=== PATIENT | male | born 1950 | race Caucasian/White ===

== ENCOUNTER 2022-04-17 15:42 | Inpatient (IN) ==
[2022-04-17] MEDS ORDERED: ONDANSETRON 4 MG/2 ML VIAL IV PRN (19:12)
[2022-04-17] MEDS ORDERED: LACTATED RINGERS 1,000 ML IV ONE ×2 (19:16→20:45)
[2022-04-17] MEDS: MEROPENEM 500 MG in SODIUM CHLORIDE 0.9% 100 ML IV SCH (19:30)
[2022-04-17 19:37] LABS: Basophils % 0.4 % (0.0-0.8); Eosinophils % 0.5 % (0.00-10.9); Hematocrit 35.8 VOL% (42.0-52.0); Hemoglobin 11.8 GM/DL (14.0-18.0); Immature Granulocytes % 0.2 %; Immature Granulocytes Absolute 0.01 #; Lymphocytes # 0.5 10*3/uL (1.4-4.0); Lymphocytes % 8.1 % (21.2-54.2); Mean Corpuscular Volume 100.8 FL (87-102); Mean Platelet Volume 10.4 FL (9.6-12.0); Monocytes # 0.4 10*3/uL (0.11-0.8); Monocytes % 7.2 % (1.7-12.7); Neutrophils % 83.6 % (38.7-73.9); Platelet Count 180 T/CUMM (130-400); Red Blood Count 3.55 MC/CUMM (3.8-5.5); White Blood Count 5.7 T/CUMM (4-12)
[2022-04-17] MEDS: HYDROmorphone 1 MG/1 ML SYRINGE IV PRN ×2 (19:42→23:50)
[2022-04-17 19:58] LABS: Albumin 2.6 G/DL (3.4-5.0); Bilirubin,Total 1.9 MG/DL (0.20-1.00); Calcium 7.7 MG/DL (8.5-10.1); Osmolality,Calculated 288.2 MOS/KG (273-304); Potassium 5.7 MMOL/L (3.5-5.1); Total Protein 6.2 G/DL (6.4-8.2)
[2022-04-17 20:11] LABS: Band Neutrophils 17 % (0-10); Eosinophils 3 % (0-10); Lymphocytes 10 % (20-55); Total Cells Counted 100
[2022-04-17 20:13] LABS: Reactive Lymphocytes Few
[2022-04-17 20:14] LABS: Burr Cells Slight; Macrocytosis Slight; Platelet Estimate Normal
[2022-04-17] MEDS ORDERED: SODIUM CHLORIDE 0.9% 1,000 ML IV ONE (20:40)
[2022-04-17] MEDS ORDERED: SODIUM CHLORIDE 0.9% 500 ML IV ONE (20:41)
[2022-04-17 21:06] LABS: Cholesterol < 50 MG/DL (50-200); HDL Cholesterol < 10 MG/DL (40-60); Triglycerides 312 MG/DL (2-150); VLDL Cholesterol 62.4 MG/DL
[2022-04-17 21:12] LABS: Albumin 2.6 G/DL (3.4-5.0); Bilirubin,Direct 1.48 MG/DL (0.0-0.20); Bilirubin,Indirect 0.4 MG/DL (0.0-1.0); Bilirubin,Total 1.9 MG/DL (0.20-1.00); Total Protein 6.3 G/DL (6.4-8.2)
[2022-04-17 21:16] LABS: Arterial Base Excess iSTAT -3 MMOL/L (-2.5-2.5); Arterial O2 Saturation iSTAT 92 % (95-100); Arterial PCO2 iSTAT 43 MM HG (35-48); Arterial PO2 iSTAT 67 MM HG (80-95); Arterial Total CO2 iSTAT 24 MMO/L (23-27)
[2022-04-17] MEDS ORDERED: SODIUM BICARBONATE 50 MEQ/50 ML VIAL IV ONE (21:21)
[2022-04-17] MEDS: ONDANSETRON 4 MG/2 ML VIAL IV PRN (21:43)
[2022-04-17] MEDS: PANTOPRAZOLE 40 MG VIAL IV SCH (22:19)
[2022-04-17] MEDS: LACTATED RINGERS 1,000 ML IV SCH (22:45)
[2022-04-18] MEDS ORDERED: LORazepam 2 MG/1 ML VIAL IV ONE ×2 (02:01→05:58)
[2022-04-18 03:02] LABS: Arterial Base Excess iSTAT -1 MMOL/L (-2.5-2.5); Arterial Bicarbonate iSTAT 23.9 MMOL/L (20-26); Arterial O2 Saturation iSTAT 93 % (95-100); Arterial PCO2 iSTAT 42 MM HG (35-48); Arterial PO2 iSTAT 69 MM HG (80-95); Arterial Total CO2 iSTAT 25 MMO/L (23-27); Arterial pH iSTAT 7.364 (7.35-7.45)
[2022-04-18 03:40] LABS: Basophils % 0.2 % (0.0-0.8); Eosinophils # 0.1 10*3/uL (0.0-0.87); Eosinophils % 1.1 % (0.00-10.9); Hematocrit 32.6 VOL% (42.0-52.0); Hemoglobin 10.5 GM/DL (14.0-18.0); Immature Granulocytes % 0.2 %; Immature Granulocytes Absolute 0.01 #; Lymphocytes # 0.3 10*3/uL (1.4-4.0); Lymphocytes % 7.8 % (21.2-54.2); Mean Corpuscular HGB Conc 32.2 GM/DL (32-36); Mean Corpuscular Volume 102.2 FL (87-102); Monocytes # 0.4 10*3/uL (0.11-0.8); Neutrophils % 80.7 % (38.7-73.9); Red Blood Count 3.19 MC/CUMM (3.8-5.5); Red Cell Distribution Width 14.9 % (9.3-17.3); White Blood Count 4.4 T/CUMM (4-12)
[2022-04-18 03:44] LABS: Platelet Count 136 T/CUMM (130-400)
[2022-04-18 04:00] LABS: Amorphous Crystals,Urine Occasional /HPF (Few); Bacteria,Urine Occasional /HPF (Few); Hyaline Casts,Urine 2 /LPF (0-3); Mucus,Urine Occasional /LPF (Occasional); RBC,Urine 5 /HPF (0-4); Squamous Epithelial Cell,Urine Occasional /HPF (0-10)
[2022-04-18 04:02] LABS: Albumin 2.1 G/DL (3.4-5.0); Bilirubin,Total 1.4 MG/DL (0.20-1.00); Calcium 6.9 MG/DL (8.5-10.1); Osmolality,Calculated 289.1 MOS/KG (273-304); Total Protein 5.5 G/DL (6.4-8.2)
[2022-04-18 04:02] LABS: Glucose,Urine (UA) Negative (Negative); Ketones,Urine Negative (Negative); Nitrite,Urine Positive (Negative); Protein,Urine 100 mg/dL (Negative); Urine Appearance HAZY (Clear); Urine Color Amber (Yellow); Urine pH 5.5 (4.5-8.0)
[2022-04-18 04:03] LABS: Bilirubin,Urine Small mg/dL (Negative); Blood, Urine Large mg/dL (Negative)
[2022-04-18] MEDS: MEROPENEM 500 MG in SODIUM CHLORIDE 0.9% 100 ML IV SCH ×4 (04:09→20:10)
[2022-04-18 04:24] LABS: Band Neutrophils 6 % (0-10); Hypochromia Slight; Lymphocytes 12 % (20-55); Total Cells Counted 100
[2022-04-18 04:25] LABS: Macrocytosis Slight
[2022-04-18 04:26] LABS: Polychromasia Slight
[2022-04-18] MEDS: LACTATED RINGERS 1,000 ML IV SCH (05:33)
[2022-04-18] MEDS: LORazepam 2 MG/1 ML VIAL IV PRN ×4 (08:40→21:34)
[2022-04-18] MEDS: PANTOPRAZOLE 40 MG VIAL IV SCH ×2 (09:05→21:30)
[2022-04-18] MEDS ORDERED: LACTATED RINGERS 1,000 ML IV SCH (09:10)
[2022-04-18] MEDS: DEXMEDETOMIDINE 400 MCG in SODIUM CHLORIDE 0.9% 96 ML IV PRN ×2 (09:35→22:30)
[2022-04-18] MEDS: SODIUM CHLORIDE 23.4% CONC INJ 38.5 MEQ, SODIUM BICARB INJ 100 MEQ in STERILE WATER INJ... IV SCH ×2 (13:35→23:37)
[2022-04-18] MEDS: HYDROmorphone 1 MG/1 ML SYRINGE IV PRN (13:45)
[2022-04-18] MEDS ORDERED: METOPROLOL TARTRATE 5 MG/5 ML VIAL IV ONE ×2 (18:05→18:08)
[2022-04-18] MEDS ORDERED: DIGOXIN 0.5 MG/2 ML AMP IV ONE ×2 (19:05→20:05)
[2022-04-18] MEDS ORDERED: PHENYLEPHRINE DRIP 40 MG/250 ML PREMIX IV ONE (19:33)
[2022-04-18] MEDS: PHENYLEPHRINE DRIP 40 MG/250 ML PREMIX IV PRN (19:44)
[2022-04-18 21:05] LABS: Arterial Base Excess iSTAT -2 MMOL/L (-2.5-2.5); Arterial Bicarbonate iSTAT 23.4 MMOL/L (20-26); Arterial O2 Saturation iSTAT 94 % (95-100); Arterial PCO2 iSTAT 44 MM HG (35-48); Arterial PO2 iSTAT 75 MM HG (80-95); Arterial Total CO2 iSTAT 25 MMO/L (23-27); Arterial pH iSTAT 7.337 (7.35-7.45)
[2022-04-18] MEDS ORDERED: FUROSEMIDE 40 MG/4 ML VIAL IV ONE (21:10)
[2022-04-19] MEDS: LORazepam 2 MG/1 ML VIAL IV PRN ×4 (01:45→22:28)
[2022-04-19] MEDS: MEROPENEM 500 MG in SODIUM CHLORIDE 0.9% 100 ML IV SCH ×2 (03:05→20:39)
[2022-04-19] MEDS: PHENYLEPHRINE DRIP 40 MG/250 ML PREMIX IV PRN (04:00)
[2022-04-19 04:10] LABS: Basophils % 0.2 % (0.0-0.8); Eosinophils # 0.1 10*3/uL (0.0-0.87); Hemoglobin 10.5 GM/DL (14.0-18.0); Immature Granulocytes % 2.3 %; Immature Granulocytes Absolute 0.12 #; Lymphocytes # 0.6 10*3/uL (1.4-4.0); Lymphocytes % 10.7 % (21.2-54.2); Mean Corpuscular HGB Conc 31.8 GM/DL (32-36); Mean Corpuscular Volume 103.1 FL (87-102); Mean Platelet Volume 10.3 FL (9.6-12.0); Monocytes # 0.7 10*3/uL (0.11-0.8); Monocytes % 12.7 % (1.7-12.7); Neutrophils % 73.1 % (38.7-73.9); Platelet Count 135 T/CUMM (130-400); Red Cell Distribution Width 14.5 % (9.3-17.3); White Blood Count 5.2 T/CUMM (4-12)
[2022-04-19 04:30] LABS: Albumin 1.9 G/DL (3.4-5.0); Bilirubin,Total 0.8 MG/DL (0.20-1.00); Calcium 6.8 MG/DL (8.5-10.1); Osmolality,Calculated 295.8 MOS/KG (273-304); Phosphorous 6.2 MG/DL (2.5-4.9); Potassium 4.5 MMOL/L (3.5-5.1); Total Protein 5.4 G/DL (6.4-8.2)
[2022-04-19 04:39] LABS: Band Neutrophils 6 % (0-10); Eosinophils 2 % (0-10); Lymphocytes 8 % (20-55); Macrocytosis Slight; Total Cells Counted 100
[2022-04-19] MEDS: SODIUM CHLORIDE 23.4% CONC INJ 38.5 MEQ, SODIUM BICARB INJ 100 MEQ in STERILE WATER INJ... IV SCH ×4 (06:29→22:58)
[2022-04-19] MEDS: DEXTROSE 10% 250 ML BAG IV PRN (07:22)
[2022-04-19] MEDS: DEXMEDETOMIDINE 400 MCG in SODIUM CHLORIDE 0.9% 96 ML IV PRN ×2 (07:57→19:36)
[2022-04-19] MEDS ORDERED: MAGNESIUM SULF RIDER 2 GM/50 ML PREMIX IV ONE (08:27)
[2022-04-19] MEDS: PANTOPRAZOLE 40 MG VIAL IV SCH ×2 (08:32→20:40)
[2022-04-19] MEDS: HYDROCORTISONE 100 MG VIAL IV SCH ×2 (11:56→23:11)
[2022-04-19] MEDS ORDERED: MIDAZOLAM 2 MG/2 ML VIAL ONE (16:31)
[2022-04-19] MEDS ORDERED: MIDAZOLAM 2 MG/2 ML VIAL IV ONE (16:34)
[2022-04-19] MEDS ORDERED: GLUCAGON 1 MG VIAL IM PRN (17:19)
[2022-04-19] MEDS ORDERED: MULTIVITAMIN INJ 10 ML in AMINO ACIDS/DEXT/LYTES 5-15% 1,000 ML IV SCH (18:00)
[2022-04-19] MEDS: INSULIN LISPRO 100 UNIT/ML SUBCUT SCH (18:16)
[2022-04-19] MEDS: NICOTINE 14 MG/24 HR PATCH TRANSDERM PRN (23:12)
[2022-04-20] MEDS: INSULIN LISPRO 100 UNIT/ML SUBCUT SCH ×4 (00:05→17:26)
[2022-04-20] MEDS: DEXMEDETOMIDINE 400 MCG in SODIUM CHLORIDE 0.9% 96 ML IV PRN ×3 (02:29→21:57)
[2022-04-20 05:08] LABS: Hematocrit 26.8 VOL% (42.0-52.0); Hemoglobin 8.8 GM/DL (14.0-18.0); Immature Granulocytes % 0.2 %; Immature Granulocytes Absolute 0.01 #; Lymphocytes # 0.4 10*3/uL (1.4-4.0); Lymphocytes % 7.5 % (21.2-54.2); Mean Corpuscular HGB Conc 32.8 GM/DL (32-36); Mean Corpuscular Volume 100.4 FL (87-102); Mean Platelet Volume 10.9 FL (9.6-12.0); Monocytes # 0.6 10*3/uL (0.11-0.8); Monocytes % 11.6 % (1.7-12.7); Neutrophils % 80.7 % (38.7-73.9); Platelet Count 109 T/CUMM (130-400); Red Blood Count 2.67 MC/CUMM (3.8-5.5); Red Cell Distribution Width 14.3 % (9.3-17.3); White Blood Count 4.8 T/CUMM (4-12)
[2022-04-20 05:30] LABS: Band Neutrophils 2 % (0-10); Lymphocytes 13 % (20-55); Total Cells Counted 100
[2022-04-20 05:31] LABS: Albumin 1.6 G/DL (3.4-5.0); Bilirubin,Total 0.6 MG/DL (0.20-1.00); Calcium 6.9 MG/DL (8.5-10.1); Hypochromia Slight; Microcytosis Slight; Osmolality,Calculated 303.2 MOS/KG (273-304); Phosphorous 8.8 MG/DL (2.5-4.9); Potassium 4.5 MMOL/L (3.5-5.1); Total Protein 5.4 G/DL (6.4-8.2)
[2022-04-20] MEDS: SODIUM CHLORIDE 23.4% CONC INJ 38.5 MEQ, SODIUM BICARB INJ 100 MEQ in STERILE WATER INJ... IV SCH ×2 (06:56→14:35)
[2022-04-20] MEDS: PANTOPRAZOLE 40 MG VIAL IV SCH ×2 (09:21→20:10)
[2022-04-20] MEDS: HYDROmorphone 1 MG/1 ML SYRINGE IV PRN ×2 (13:25→17:06)
[2022-04-20] MEDS ORDERED: THIAMINE 200 MG/2 ML VIAL IV ONE (14:09)
[2022-04-20 14:28] LABS: Eosinophils % 0.2 % (0.00-10.9); Hematocrit 28.6 VOL% (42.0-52.0); Hemoglobin 9.3 GM/DL (14.0-18.0); Immature Granulocytes % 0.4 %; Immature Granulocytes Absolute 0.02 #; Lymphocytes # 0.5 10*3/uL (1.4-4.0); Lymphocytes % 9.7 % (21.2-54.2); Mean Corpuscular HGB Conc 32.5 GM/DL (32-36); Mean Corpuscular Volume 99.3 FL (87-102); Mean Platelet Volume 10.2 FL (9.6-12.0); Monocytes # 0.6 10*3/uL (0.11-0.8); Monocytes % 12.3 % (1.7-12.7); Neutrophils % 77.4 % (38.7-73.9); Platelet Count 102 T/CUMM (130-400); Red Blood Count 2.88 MC/CUMM (3.8-5.5); Red Cell Distribution Width 14.1 % (9.3-17.3); White Blood Count 4.9 T/CUMM (4-12)
[2022-04-20] MEDS ORDERED: THIAMINE 200 MG/2 ML VIAL IV SCH (14:30)
[2022-04-20 14:46] LABS: Calcium 6.7 MG/DL (8.5-10.1); Osmolality,Calculated 303.1 MOS/KG (273-304); Potassium 4.1 MMOL/L (3.5-5.1)
[2022-04-20] MEDS: THIAMINE INJ 500 MG in SODIUM CHLORIDE 0.9% 100 ML IV SCH (15:48)
[2022-04-20] MEDS: HALOPERIDOL 5 MG/ML AMP IM PRN (16:46)
[2022-04-20] MEDS ORDERED: AMINO ACIDS IV SCH (17:00)
[2022-04-20] MEDS ORDERED: [UNRECOGNIZED DRUG - OTHER] IV SCH (17:00)
[2022-04-20] MEDS ORDERED: ELECTROLYTE IV SCH (17:00)
[2022-04-20] MEDS ORDERED: MULTIVITAMIN IV SCH (17:00)
[2022-04-20] MEDS: MEROPENEM 500 MG in SODIUM CHLORIDE 0.9% 100 ML IV SCH (20:10)
[2022-04-21] MEDS: INSULIN LISPRO 100 UNIT/ML SUBCUT SCH ×4 (00:36→18:01)
[2022-04-21] MEDS: THIAMINE INJ 500 MG in SODIUM CHLORIDE 0.9% 100 ML IV SCH ×2 (00:36→08:13)
[2022-04-21] MEDS ORDERED: METOPROLOL TARTRATE 5 MG/5 ML VIAL IV ONE ×2 (00:46→04:32)
[2022-04-21] MEDS: SODIUM CHLORIDE 23.4% CONC INJ 38.5 MEQ, SODIUM BICARB INJ 100 MEQ in STERILE WATER INJ... IV SCH (00:49)
[2022-04-21] MEDS: HALOPERIDOL 5 MG/ML AMP IM PRN (01:59)
[2022-04-21] MEDS: hydrALAZINE 20 MG/1 ML VIAL IV PRN (03:33)
[2022-04-21 03:50] LABS: Basophils % 0.1 % (0.0-0.8); Calcium 6.6 MG/DL (8.5-10.1); Eosinophils % 0.1 % (0.00-10.9); Hematocrit 29.3 VOL% (42.0-52.0); Hemoglobin 9.5 GM/DL (14.0-18.0); Immature Granulocytes Absolute 0.08 #; Lymphocytes # 0.7 10*3/uL (1.4-4.0); Lymphocytes % 9.1 % (21.2-54.2); Mean Corpuscular HGB Conc 32.4 GM/DL (32-36); Mean Corpuscular Volume 100.3 FL (87-102); Mean Platelet Volume 10.8 FL (9.6-12.0); Monocytes # 0.8 10*3/uL (0.11-0.8); Monocytes % 9.8 % (1.7-12.7); Neutrophils % 79.9 % (38.7-73.9); Platelet Count 114 T/CUMM (130-400); Potassium 3.9 MMOL/L (3.5-5.1); Red Blood Count 2.92 MC/CUMM (3.8-5.5); White Blood Count 7.9 T/CUMM (4-12)
[2022-04-21] MEDS: HYDROmorphone 1 MG/1 ML SYRINGE IV PRN ×4 (04:32→20:23)
[2022-04-21] MEDS ORDERED: LORazepam 2 MG/1 ML VIAL IV ONE (04:36)
[2022-04-21] MEDS: PANTOPRAZOLE 40 MG VIAL IV SCH ×2 (08:14→20:02)
[2022-04-21] MEDS: DEXMEDETOMIDINE 400 MCG in SODIUM CHLORIDE 0.9% 96 ML IV PRN ×2 (08:26→17:13)
[2022-04-21] MEDS ORDERED: cloNIDine 0.1 MG/24 HR PATCH TRANSDERM SCH (10:22)
[2022-04-21] MEDS: SODIUM CHLORIDE 0.9% 1,000 ML IV SCH ×2 (10:30→20:00)
[2022-04-21] MEDS: cloNIDine 0.1 MG/24 HR PATCH TRANSDERM SCH (11:26)
[2022-04-21] MEDS: NICOTINE 14 MG/24 HR PATCH TRANSDERM PRN (11:48)
[2022-04-21] MEDS: FAT EMULSION 20% 250 ML IV SCH (13:52)
[2022-04-21] MEDS ORDERED: [UNRECOGNIZED DRUG - OTHER] IV SCH (17:00)
[2022-04-21] MEDS ORDERED: ELECTROLYTE IV SCH (17:00)
[2022-04-21] MEDS ORDERED: INSULIN REGULAR IV SCH (17:00)
[2022-04-21] MEDS ORDERED: MULTIVITAMIN IV SCH (17:00)
[2022-04-21] MEDS: MEROPENEM 500 MG in SODIUM CHLORIDE 0.9% 100 ML IV SCH (20:00)
[2022-04-21] MEDS: METOPROLOL TARTRATE 5 MG/5 ML VIAL IV PRN (20:40)
[2022-04-22] MEDS: INSULIN LISPRO 100 UNIT/ML SUBCUT SCH ×6 (00:49→23:57)
[2022-04-22] MEDS: DEXMEDETOMIDINE 400 MCG in SODIUM CHLORIDE 0.9% 96 ML IV PRN ×2 (01:56→11:56)
[2022-04-22] MEDS: SODIUM CHLORIDE 0.9% 1,000 ML IV SCH (04:18)
[2022-04-22 04:19] LABS: Basophils % 0.1 % (0.0-0.8); Eosinophils % 0.2 % (0.00-10.9); Hematocrit 25.9 VOL% (42.0-52.0); Hemoglobin 8.4 GM/DL (14.0-18.0); Immature Granulocytes Absolute 0.08 #; Lymphocytes # 0.6 10*3/uL (1.4-4.0); Lymphocytes % 7.7 % (21.2-54.2); Mean Corpuscular HGB Conc 32.4 GM/DL (32-36); Mean Platelet Volume 10.7 FL (9.6-12.0); Monocytes # 0.8 10*3/uL (0.11-0.8); Monocytes % 9.9 % (1.7-12.7); Neutrophils % 81.1 % (38.7-73.9); Platelet Count 107 T/CUMM (130-400); Red Blood Count 2.59 MC/CUMM (3.8-5.5); Red Cell Distribution Width 14.1 % (9.3-17.3); White Blood Count 8.1 T/CUMM (4-12)
[2022-04-22 04:46] LABS: Albumin 1.3 G/DL (3.4-5.0); Bilirubin,Total 0.5 MG/DL (0.20-1.00); Calcium 6.6 MG/DL (8.5-10.1); Osmolality,Calculated 317.7 MOS/KG (273-304); Phosphorous 4.9 MG/DL (2.5-4.9); Potassium 3.6 MMOL/L (3.5-5.1); Total Protein 5.1 G/DL (6.4-8.2)
[2022-04-22 04:47] LABS: Band Neutrophils 2 % (0-10); Lymphocytes 7 % (20-55); Total Cells Counted 100
[2022-04-22 04:48] LABS: Microcytosis Slight; Platelet Estimate Decreased
[2022-04-22 04:53] LABS: Calcium 6.8 MG/DL (8.5-10.1); Osmolality,Calculated 321.5 MOS/KG (273-304); Potassium 3.6 MMOL/L (3.5-5.1)
[2022-04-22] MEDS: HALOPERIDOL 5 MG/ML AMP IM PRN ×2 (07:50→19:50)
[2022-04-22] MEDS: PANTOPRAZOLE 40 MG VIAL IV SCH ×2 (08:52→21:01)
[2022-04-22] MEDS: HYDROmorphone 1 MG/1 ML SYRINGE IV PRN ×3 (08:53→21:24)
[2022-04-22] MEDS ORDERED: FUROSEMIDE 40 MG/4 ML VIAL IV ONE (11:18)
[2022-04-22] MEDS ORDERED: INSULIN LISPRO 100 UNIT/ML SUBCUT SCH (13:30)
[2022-04-22] MEDS: METOPROLOL TARTRATE 5 MG/5 ML VIAL IV PRN (14:16)
[2022-04-22] MEDS ORDERED: METOPROLOL TARTRATE 5 MG/5 ML VIAL IV ONE (14:19)
[2022-04-22] MEDS ORDERED: AMIODARONE INJ 150 MG in DEXTROSE 5% 100 ML IV ONE (14:31)
[2022-04-22 14:44] LABS: Arterial Base Excess iSTAT 5 MMOL/L (-2.5-2.5); Arterial O2 Saturation iSTAT 95 % (95-100); Arterial PCO2 iSTAT 48 MM HG (35-48); Arterial PO2 iSTAT 79 MM HG (80-95); Arterial Total CO2 iSTAT 31 MMO/L (23-27); Arterial pH iSTAT 7.404 (7.35-7.45)
[2022-04-22] MEDS ORDERED: AMIODARONE INJ 450 MG in DEXTROSE 5% 241 ML IV SCH (16:00)
[2022-04-22] MEDS ORDERED: MULTIVITAMIN IV SCH (17:00)
[2022-04-22] MEDS ORDERED: INSULIN REGULAR IV SCH (17:00)
[2022-04-22] MEDS ORDERED: ELECTROLYTE IV SCH (17:00)
[2022-04-22] MEDS ORDERED: [UNRECOGNIZED DRUG - OTHER] IV SCH (17:00)
[2022-04-22] MEDS ORDERED: DILTIAZEM 25 MG/5 ML VIAL IV ONE (18:00)
[2022-04-22] MEDS ORDERED: DILTIAZEM 25 MG/5 ML VIAL IV STA (19:33)
[2022-04-22] MEDS: MEROPENEM 500 MG in SODIUM CHLORIDE 0.9% 100 ML IV SCH (21:02)
[2022-04-22] MEDS: AMIODARONE INJ 450 MG in DEXTROSE 5% 241 ML IV SCH (23:19)
[2022-04-23] MEDS: HYDROmorphone 1 MG/1 ML SYRINGE IV PRN ×4 (01:04→22:01)
[2022-04-23 03:28] LABS: Basophils % 0.1 % (0.0-0.8); Eosinophils # 0.1 10*3/uL (0.0-0.87); Eosinophils % 0.5 % (0.00-10.9); Hematocrit 27.3 VOL% (42.0-52.0); Hemoglobin 8.8 GM/DL (14.0-18.0); Immature Granulocytes % 1.3 %; Immature Granulocytes Absolute 0.13 #; Lymphocytes # 0.9 10*3/uL (1.4-4.0); Lymphocytes % 8.7 % (21.2-54.2); Mean Corpuscular HGB Conc 32.2 GM/DL (32-36); Mean Corpuscular Volume 102.6 FL (87-102); Mean Platelet Volume 10.7 FL (9.6-12.0); Monocytes # 1.1 10*3/uL (0.11-0.8); Monocytes % 10.7 % (1.7-12.7); Neutrophils % 78.7 % (38.7-73.9); Platelet Count 156 T/CUMM (130-400); Red Blood Count 2.66 MC/CUMM (3.8-5.5); Red Cell Distribution Width 14.2 % (9.3-17.3); White Blood Count 10.3 T/CUMM (4-12)
[2022-04-23 03:44] LABS: Calcium 7.5 MG/DL (8.5-10.1); Osmolality,Calculated 323.7 MOS/KG (273-304); Potassium 3.7 MMOL/L (3.5-5.1)
[2022-04-23 03:49] LABS: Phosphorous 5.3 MG/DL (2.5-4.9)
[2022-04-23] MEDS: INSULIN LISPRO 100 UNIT/ML SUBCUT SCH ×6 (04:26→23:37)
[2022-04-23] MEDS: HALOPERIDOL 5 MG/ML AMP IM PRN (06:12)
[2022-04-23] MEDS ORDERED: FUROSEMIDE 40 MG/4 ML VIAL IV ONE (08:45)
[2022-04-23] MEDS: THIAMINE 200 MG/2 ML VIAL IV SCH (09:44)
[2022-04-23] MEDS: ALBUMIN 25% 25 GM/100 ML VIAL IV SCH ×2 (09:44→17:55)
[2022-04-23] MEDS: PANTOPRAZOLE 40 MG VIAL IV SCH ×2 (09:47→21:46)
[2022-04-23] MEDS: NICOTINE 14 MG/24 HR PATCH TRANSDERM PRN (09:51)
[2022-04-23] MEDS ORDERED: DILTIAZEM 25 MG/5 ML VIAL IV ONE (10:03)
[2022-04-23] MEDS: FAT EMULSION 20% 250 ML IV SCH (11:29)
[2022-04-23] MEDS ORDERED: methylPREDNISolone SOD SUC 125 MG/2 ML VIAL IV ONE (12:01)
[2022-04-23] MEDS ORDERED: BISACODYL 10 MG SUPP RECTAL ONE (13:00)
[2022-04-23] MEDS: HEPARIN 5,000 UNIT/1 ML VIAL SUBCUT SCH (13:09)
[2022-04-23] MEDS: DILTIAZEM INJ 100 MG in SODIUM CHLORIDE 0.9% 100 ML IV SCH ×2 (13:09→19:52)
[2022-04-23] MEDS: AMIODARONE INJ 450 MG in DEXTROSE 5% 241 ML IV SCH (13:50)
[2022-04-23] MEDS: hydrALAZINE 20 MG/1 ML VIAL IV PRN (15:57)
[2022-04-23] MEDS: ELECTROLYTE IV SCH (17:55)
[2022-04-23] MEDS: INSULIN REGULAR IV SCH (17:55)
[2022-04-23] MEDS: MULTIVITAMIN IV SCH (17:55)
[2022-04-23] MEDS: [UNRECOGNIZED DRUG - OTHER] IV SCH (17:55)
[2022-04-23] MEDS: MEROPENEM 500 MG in SODIUM CHLORIDE 0.9% 100 ML IV SCH (21:56)
[2022-04-24] MEDS ORDERED: INSULIN REGULAR 100 UNIT/ML IV ONE
[2022-04-24] MEDS: HEPARIN 5,000 UNIT/1 ML VIAL SUBCUT SCH ×2 (00:13→11:50)
[2022-04-24] MEDS: ALBUMIN 25% 25 GM/100 ML VIAL IV SCH (00:19)
[2022-04-24] MEDS: HALOPERIDOL 5 MG/ML AMP IM PRN ×2 (00:26→23:00)
[2022-04-24] MEDS: HYDROmorphone 1 MG/1 ML SYRINGE IV PRN ×3 (01:38→21:33)
[2022-04-24] MEDS ORDERED: ALBUTEROL/IPRATROPIUM 3 ML NEB RESP TX STA (04:33)
[2022-04-24] MEDS: INSULIN LISPRO 100 UNIT/ML SUBCUT SCH ×5 (04:37→21:32)
[2022-04-24 04:45] LABS: Basophils % 0.1 % (0.0-0.8); Hematocrit 28.4 VOL% (42.0-52.0); Hemoglobin 9.1 GM/DL (14.0-18.0); Immature Granulocytes Absolute 0.09 #; Lymphocytes # 0.6 10*3/uL (1.4-4.0); Lymphocytes % 6.6 % (21.2-54.2); Mean Corpuscular Volume 102.2 FL (87-102); Monocytes # 0.4 10*3/uL (0.11-0.8); Monocytes % 4.9 % (1.7-12.7); Neutrophils % 87.4 % (38.7-73.9); Platelet Count 212 T/CUMM (130-400); Red Blood Count 2.78 MC/CUMM (3.8-5.5); Red Cell Distribution Width 13.8 % (9.3-17.3); White Blood Count 8.9 T/CUMM (4-12)
[2022-04-24 05:13] LABS: Calcium 8.6 MG/DL (8.5-10.1); Potassium 3.8 MMOL/L (3.5-5.1)
[2022-04-24] MEDS: AMIODARONE INJ 450 MG in DEXTROSE 5% 241 ML IV SCH (06:59)
[2022-04-24] MEDS: THIAMINE 200 MG/2 ML VIAL IV SCH (08:12)
[2022-04-24] MEDS: PANTOPRAZOLE 40 MG VIAL IV SCH ×2 (08:12→21:29)
[2022-04-24] MEDS ORDERED: AMIODARONE 200 MG TABLET PO SCH (09:00)
[2022-04-24] MEDS ORDERED: ALBUTEROL/IPRATROPIUM 3 ML NEB RESP TX PRN (09:00)
[2022-04-24] MEDS ORDERED: INSULIN GLARGINE 100 UNIT/ML SUBCUT SCH (10:03)
[2022-04-24 13:48] LABS: Hepatitis B Core IgM Quant 0.16 Index; Hepatitis B Surface Ag Quant < 0.10 Index; Hepatitis B Surface Ag Result Non-Reactive (NonReactive); Hepatitis C Virus Ab Quant 0.16 Index; Hepatitis C Virus Ab Result Non-Reactive (NonReactive)
[2022-04-24] MEDS ORDERED: HEPARIN 10,000 UNIT/10 ML VIAL IV PRN (14:04)
[2022-04-24] MEDS: ELECTROLYTE IV SCH (17:11)
[2022-04-24] MEDS: MULTIVITAMIN IV SCH (17:11)
[2022-04-24] MEDS: INSULIN REGULAR IV SCH (17:11)
[2022-04-24] MEDS: [UNRECOGNIZED DRUG - OTHER] IV SCH (17:11)
[2022-04-24] MEDS: NICOTINE 14 MG/24 HR PATCH TRANSDERM PRN (17:15)
[2022-04-24] MEDS: MEROPENEM 500 MG in SODIUM CHLORIDE 0.9% 100 ML IV SCH (21:29)
[2022-04-24] MEDS: hydrALAZINE 20 MG/1 ML VIAL IV PRN (22:12)
[2022-04-24] MEDS: LORazepam 2 MG/1 ML VIAL IV PRN (22:38)
[2022-04-24] MEDS: METOPROLOL TARTRATE 5 MG/5 ML VIAL IV PRN (23:59)
[2022-04-25] MEDS: INSULIN LISPRO 100 UNIT/ML SUBCUT SCH ×6 (01:03→19:43)
[2022-04-25] MEDS: LORazepam 2 MG/1 ML VIAL IV PRN ×2 (02:05→11:05)
[2022-04-25] MEDS: HEPARIN 5,000 UNIT/1 ML VIAL SUBCUT SCH ×2 (02:07→11:39)
[2022-04-25 03:54] LABS: Basophils % 0.2 % (0.0-0.8); Hematocrit 30.5 VOL% (42.0-52.0); Hemoglobin 9.8 GM/DL (14.0-18.0); Immature Granulocytes % 1.2 %; Immature Granulocytes Absolute 0.15 #; Lymphocytes # 0.8 10*3/uL (1.4-4.0); Lymphocytes % 6.4 % (21.2-54.2); Mean Corpuscular HGB Conc 32.1 GM/DL (32-36); Mean Corpuscular Volume 101.7 FL (87-102); Mean Platelet Volume 10.9 FL (9.6-12.0); Monocytes % 8.1 % (1.7-12.7); Neutrophils % 84.1 % (38.7-73.9); Platelet Count 338 T/CUMM (130-400); Red Cell Distribution Width 13.7 % (9.3-17.3); White Blood Count 12.9 T/CUMM (4-12)
[2022-04-25 04:22] LABS: Bilirubin,Total 0.5 MG/DL (0.20-1.00); Calcium 8.7 MG/DL (8.5-10.1); Potassium 3.7 MMOL/L (3.5-5.1); Total Protein 6.1 G/DL (6.4-8.2)
[2022-04-25] MEDS: hydrALAZINE 20 MG/1 ML VIAL IV PRN (05:08)
[2022-04-25] MEDS: THIAMINE 200 MG/2 ML VIAL IV SCH (08:05)
[2022-04-25] MEDS: HYDROmorphone 1 MG/1 ML SYRINGE IV PRN ×4 (08:06→21:27)
[2022-04-25] MEDS: PANTOPRAZOLE 40 MG VIAL IV SCH ×2 (08:06→21:26)
[2022-04-25] MEDS: DILTIAZEM INJ 100 MG in SODIUM CHLORIDE 0.9% 100 ML IV SCH ×2 (08:07→19:34)
[2022-04-25] MEDS ORDERED: AMIODARONE 200 MG TABLET PO SCH (09:00)
[2022-04-25] MEDS: OMEGA 3 ACID ETHYL ESTERS 1 GM CAPSULE PO SCH ×2 (09:19→21:26)
[2022-04-25] MEDS ORDERED: METOPROLOL TARTRATE 25 MG TABLET PO SCH (12:00)
[2022-04-25] MEDS ORDERED: LORazepam 2 MG/1 ML VIAL IV ONE (15:34)
[2022-04-25] MEDS ORDERED: METOPROLOL TARTRATE 5 MG/5 ML VIAL IV ONE ×2 (15:35→15:39)
[2022-04-25] MEDS: AMIODARONE INJ 450 MG in DEXTROSE 5% 241 ML IV SCH (18:47)
[2022-04-25] MEDS: ONDANSETRON 4 MG/2 ML VIAL IV PRN (19:43)
[2022-04-25] MEDS: MEROPENEM 500 MG in SODIUM CHLORIDE 0.9% 100 ML IV SCH (21:26)
[2022-04-26] MEDS: INSULIN LISPRO 100 UNIT/ML SUBCUT SCH ×6 (00:01→20:56)
[2022-04-26] MEDS: HYDROmorphone 1 MG/1 ML SYRINGE IV PRN ×8 (00:01→22:09)
[2022-04-26] MEDS: METOPROLOL TARTRATE 5 MG/5 ML VIAL IV SCH ×4 (00:02→17:25)
[2022-04-26] MEDS: HEPARIN 5,000 UNIT/1 ML VIAL SUBCUT SCH ×2 (00:03→11:43)
[2022-04-26] MEDS: DILTIAZEM INJ 100 MG in SODIUM CHLORIDE 0.9% 100 ML IV SCH ×2 (00:07→07:46)
[2022-04-26] MEDS: ONDANSETRON 4 MG/2 ML VIAL IV PRN ×3 (03:11→19:33)
[2022-04-26 04:05] LABS: Basophils % 0.1 % (0.0-0.8); Hematocrit 27.7 VOL% (42.0-52.0); Hemoglobin 8.6 GM/DL (14.0-18.0); Immature Granulocytes % 0.9 %; Immature Granulocytes Absolute 0.15 #; Lymphocytes # 1.2 10*3/uL (1.4-4.0); Lymphocytes % 6.8 % (21.2-54.2); Mean Corpuscular Volume 104.1 FL (87-102); Mean Platelet Volume 10.4 FL (9.6-12.0); Monocytes % 12.1 % (1.7-12.7); Neutrophils % 80.1 % (38.7-73.9); Platelet Count 352 T/CUMM (130-400); Red Blood Count 2.66 MC/CUMM (3.8-5.5); Red Cell Distribution Width 14.1 % (9.3-17.3); White Blood Count 16.8 T/CUMM (4-12)
[2022-04-26 04:47] LABS: Albumin 1.8 G/DL (3.4-5.0); Bilirubin,Total 0.6 MG/DL (0.20-1.00); Calcium 8.4 MG/DL (8.5-10.1); Osmolality,Calculated 310.5 MOS/KG (273-304); Potassium 4.2 MMOL/L (3.5-5.1); Total Protein 5.6 G/DL (6.4-8.2); Uric Acid 7.5 MG/DL (3.5-7.2)
[2022-04-26] MEDS: OMEGA 3 ACID ETHYL ESTERS 1 GM CAPSULE PO SCH ×2 (08:25→20:56)
[2022-04-26] MEDS: THIAMINE 200 MG/2 ML VIAL IV SCH (08:31)
[2022-04-26] MEDS: PANTOPRAZOLE 40 MG VIAL IV SCH ×2 (08:31→20:57)
[2022-04-26] MEDS: AMIODARONE INJ 450 MG in DEXTROSE 5% 241 ML IV SCH (10:31)
[2022-04-26] MEDS: ELECTROLYTE IV SCH ×2 (15:45→17:25)
[2022-04-26] MEDS: [UNRECOGNIZED DRUG - OTHER] IV SCH ×2 (15:45→17:25)
[2022-04-26] MEDS: INSULIN REGULAR IV SCH ×2 (15:45→17:25)
[2022-04-26] MEDS: MULTIVITAMIN IV SCH ×2 (15:45→17:25)
[2022-04-26] MEDS: MEROPENEM 500 MG in SODIUM CHLORIDE 0.9% 100 ML IV SCH (20:56)
[2022-04-27] MEDS: INSULIN LISPRO 100 UNIT/ML SUBCUT SCH ×6 (00:10→20:29)
[2022-04-27] MEDS: HEPARIN 5,000 UNIT/1 ML VIAL SUBCUT SCH ×2 (00:10→11:57)
[2022-04-27] MEDS: ONDANSETRON 4 MG/2 ML VIAL IV PRN ×2 (00:11→20:27)
[2022-04-27] MEDS: HYDROmorphone 1 MG/1 ML SYRINGE IV PRN ×6 (00:12→20:28)
[2022-04-27] MEDS: METOPROLOL TARTRATE 5 MG/5 ML VIAL IV SCH ×5 (00:13→23:44)
[2022-04-27] MEDS: AMIODARONE INJ 450 MG in DEXTROSE 5% 241 ML IV SCH ×3 (00:30→18:20)
[2022-04-27 03:59] LABS: Basophils % 0.1 % (0.0-0.8); Eosinophils % 0.1 % (0.00-10.9); Hematocrit 27.1 VOL% (42.0-52.0); Hemoglobin 8.3 GM/DL (14.0-18.0); Immature Granulocytes % 1.3 %; Lymphocytes % 6.1 % (21.2-54.2); Mean Corpuscular HGB Conc 30.6 GM/DL (32-36); Mean Platelet Volume 10.6 FL (9.6-12.0); Monocytes # 1.6 10*3/uL (0.11-0.8); Monocytes % 10.1 % (1.7-12.7); Neutrophils % 82.3 % (38.7-73.9); Platelet Count 330 T/CUMM (130-400); Red Blood Count 2.58 MC/CUMM (3.8-5.5); Red Cell Distribution Width 14.1 % (9.3-17.3)
[2022-04-27 04:23] LABS: Phosphorous 6.8 MG/DL (2.5-4.9)
[2022-04-27 04:27] LABS: Albumin 1.7 G/DL (3.4-5.0); Bilirubin,Total 0.5 MG/DL (0.20-1.00); Calcium 8.7 MG/DL (8.5-10.1); Osmolality,Calculated 315.7 MOS/KG (273-304); Potassium 4.3 MMOL/L (3.5-5.1); Total Protein 5.8 G/DL (6.4-8.2)
[2022-04-27] MEDS: NICOTINE 14 MG/24 HR PATCH TRANSDERM PRN (05:12)
[2022-04-27] MEDS: OMEGA 3 ACID ETHYL ESTERS 1 GM CAPSULE PO SCH ×2 (08:11→20:27)
[2022-04-27] MEDS: PANTOPRAZOLE 40 MG VIAL IV SCH ×2 (08:11→20:28)
[2022-04-27] MEDS: DILTIAZEM INJ 100 MG in SODIUM CHLORIDE 0.9% 100 ML IV SCH (08:11)
[2022-04-27] MEDS: THIAMINE 200 MG/2 ML VIAL IV SCH (08:12)
[2022-04-27] MEDS: MULTIVITAMIN IV SCH (18:19)
[2022-04-27] MEDS: ELECTROLYTE IV SCH (18:19)
[2022-04-27] MEDS: [UNRECOGNIZED DRUG - OTHER] IV SCH (18:19)
[2022-04-27] MEDS: INSULIN REGULAR IV SCH (18:19)
[2022-04-28] MEDS: HEPARIN 5,000 UNIT/1 ML VIAL SUBCUT SCH ×2 (00:28→12:21)
[2022-04-28] MEDS: INSULIN LISPRO 100 UNIT/ML SUBCUT SCH ×6 (00:28→21:14)
[2022-04-28] MEDS: HYDROmorphone 1 MG/1 ML SYRINGE IV PRN ×5 (02:31→16:35)
[2022-04-28 03:38] LABS: Basophils % 0.1 % (0.0-0.8); Eosinophils % 0.1 % (0.00-10.9); Hematocrit 25.2 VOL% (42.0-52.0); Hemoglobin 7.8 GM/DL (14.0-18.0); Immature Granulocytes % 2.1 %; Immature Granulocytes Absolute 0.31 #; Lymphocytes # 0.6 10*3/uL (1.4-4.0); Lymphocytes % 4.3 % (21.2-54.2); Mean Corpuscular Volume 103.7 FL (87-102); Mean Platelet Volume 10.5 FL (9.6-12.0); Monocytes # 1.4 10*3/uL (0.11-0.8); Monocytes % 9.5 % (1.7-12.7); Neutrophils % 83.9 % (38.7-73.9); Platelet Count 326 T/CUMM (130-400); Red Blood Count 2.43 MC/CUMM (3.8-5.5); Red Cell Distribution Width 13.8 % (9.3-17.3); White Blood Count 14.8 T/CUMM (4-12)
[2022-04-28 03:55] LABS: Albumin 1.6 G/DL (3.4-5.0); Bilirubin,Total 0.6 MG/DL (0.20-1.00); Calcium 8.7 MG/DL (8.5-10.1); Potassium 4.1 MMOL/L (3.5-5.1); Total Protein 5.7 G/DL (6.4-8.2)
[2022-04-28 03:59] LABS: Band Neutrophils 2 % (0-10); Hypochromia Slight; Lymphocytes 3 % (20-55); Microcytosis Slight; Platelet Estimate Adequate; Total Cells Counted 100
[2022-04-28 04:28] LABS: Arterial Base Excess iSTAT -1 MMOL/L (-2.5-2.5); Arterial Bicarbonate iSTAT 25.4 MMOL/L (20-26); Arterial O2 Saturation iSTAT 97 % (95-100); Arterial PCO2 iSTAT 48 MM HG (35-48); Arterial PO2 iSTAT 93 MM HG (80-95); Arterial Total CO2 iSTAT 27 MMO/L (23-27); Arterial pH iSTAT 7.333 (7.35-7.45)
[2022-04-28] MEDS: METOPROLOL TARTRATE 5 MG/5 ML VIAL IV SCH (05:44)
[2022-04-28] MEDS: PANTOPRAZOLE 40 MG VIAL IV SCH ×2 (08:13→21:14)
[2022-04-28] MEDS: THIAMINE 200 MG/2 ML VIAL IV SCH (08:13)
[2022-04-28] MEDS: cloNIDine 0.1 MG/24 HR PATCH TRANSDERM SCH ×3 (08:14→16:48)
[2022-04-28] MEDS: DILTIAZEM INJ 100 MG in SODIUM CHLORIDE 0.9% 100 ML IV SCH (08:24)
[2022-04-28] MEDS: OMEGA 3 ACID ETHYL ESTERS 1 GM CAPSULE PO SCH ×2 (08:25→21:14)
[2022-04-28] MEDS ORDERED: METOPROLOL TARTRATE 5 MG/5 ML VIAL IV PRN (08:44)
[2022-04-28] MEDS: METOPROLOL TARTRATE 25 MG TABLET PO SCH ×2 (09:33→21:14)
[2022-04-28] MEDS: ELECTROLYTE IV SCH (17:00)
[2022-04-28] MEDS: INSULIN REGULAR IV SCH (17:00)
[2022-04-28] MEDS: MULTIVITAMIN IV SCH (17:00)
[2022-04-28] MEDS: [UNRECOGNIZED DRUG - OTHER] IV SCH (17:00)
[2022-04-29] MEDS: INSULIN LISPRO 100 UNIT/ML SUBCUT SCH ×6 (00:14→20:31)
[2022-04-29] MEDS: HEPARIN 5,000 UNIT/1 ML VIAL SUBCUT SCH ×2 (00:14→11:30)
[2022-04-29 05:38] LABS: Basophils % 0.1 % (0.0-0.8); Eosinophils # 0.1 10*3/uL (0.0-0.87); Eosinophils % 0.5 % (0.00-10.9); Hematocrit 25.3 VOL% (42.0-52.0); Immature Granulocytes % 1.1 %; Immature Granulocytes Absolute 0.14 #; Lymphocytes # 0.7 10*3/uL (1.4-4.0); Lymphocytes % 5.5 % (21.2-54.2); Mean Corpuscular HGB Conc 31.6 GM/DL (32-36); Mean Corpuscular Volume 102.4 FL (87-102); Mean Platelet Volume 10.8 FL (9.6-12.0); Monocytes # 1.2 10*3/uL (0.11-0.8); Monocytes % 9.5 % (1.7-12.7); Neutrophils % 83.3 % (38.7-73.9); Platelet Count 334 T/CUMM (130-400); Red Blood Count 2.47 MC/CUMM (3.8-5.5); Red Cell Distribution Width 13.8 % (9.3-17.3); White Blood Count 12.3 T/CUMM (4-12)
[2022-04-29 05:57] LABS: Albumin 1.6 G/DL (3.4-5.0); Bilirubin,Total 0.7 MG/DL (0.20-1.00); Calcium 8.9 MG/DL (8.5-10.1); Osmolality,Calculated 320.8 MOS/KG (273-304); Potassium 4.5 MMOL/L (3.5-5.1)
[2022-04-29] MEDS: PANTOPRAZOLE 40 MG VIAL IV SCH ×2 (08:25→23:26)
[2022-04-29] MEDS: THIAMINE 200 MG/2 ML VIAL IV SCH (08:26)
[2022-04-29] MEDS: OMEGA 3 ACID ETHYL ESTERS 1 GM CAPSULE PO SCH (08:26)
[2022-04-29] MEDS: METOPROLOL TARTRATE 25 MG TABLET PO SCH (08:26)
[2022-04-29] MEDS: DILTIAZEM INJ 100 MG in SODIUM CHLORIDE 0.9% 100 ML IV SCH (08:32)
[2022-04-29] MEDS: HYDROmorphone 1 MG/1 ML SYRINGE IV PRN ×3 (11:30→20:52)
[2022-04-29] MEDS: MULTIVITAMIN IV SCH (16:33)
[2022-04-29] MEDS: [UNRECOGNIZED DRUG - OTHER] IV SCH (16:33)
[2022-04-29] MEDS: ELECTROLYTE IV SCH (16:33)
[2022-04-29] MEDS: INSULIN REGULAR IV SCH (16:33)
[2022-04-29] MEDS ORDERED: ALPRAZolam 0.5 MG TABLET PO ONE (17:16)
[2022-04-29] MEDS ORDERED: HYDROmorphone 1 MG/1 ML SYRINGE IV ONE (17:40)
[2022-04-29] MEDS ORDERED: DIGOXIN 0.5 MG/2 ML AMP IV ONE ×2 (17:41→18:40)
[2022-04-29 20:39] LABS: Arterial Base Excess iSTAT -2 MMOL/L (-2.5-2.5); Arterial Bicarbonate iSTAT 22.3 MMOL/L (20-26); Arterial O2 Saturation iSTAT 90 % (95-100); Arterial PCO2 iSTAT 35 MM HG (35-48); Arterial PO2 iSTAT 56 MM HG (80-95); Arterial Total CO2 iSTAT 23 MMO/L (23-27); Arterial pH iSTAT 7.413 (7.35-7.45)
[2022-04-29] MEDS: PHENYLEPHRINE DRIP 40 MG/250 ML PREMIX IV PRN (21:17)
[2022-04-29] MEDS ORDERED: ETOMIDATE 20 MG/10 ML VIAL IV ONE ×2 (21:19→21:29)
[2022-04-29] MEDS ORDERED: ROCURONIUM 100 MG/10 ML VIAL IV ONE ×2 (21:19→21:29)
[2022-04-29] MEDS: MIDAZOLAM 100 MG in SODIUM CHLORIDE 0.9% 80 ML IV PRN (22:19)
[2022-04-29 23:35] LABS: ABG Base Excess -4.2 MMOL/L (-2.5-2.5); ABG HCO3 20.9 MMOL/L (20-26); ABG PH 7.257 (7.35-7.45); ABG TCO2 21.6 MMOL/L (23-27)
[2022-04-30] MEDS: METOPROLOL TARTRATE 25 MG TABLET PO SCH ×3 (01:31→21:36)
[2022-04-30] MEDS: OMEGA 3 ACID ETHYL ESTERS 1 GM CAPSULE PO SCH ×3 (01:32→21:36)
[2022-04-30] MEDS: INSULIN LISPRO 100 UNIT/ML SUBCUT SCH ×6 (01:33→21:15)
[2022-04-30] MEDS: PHENYLEPHRINE DRIP 40 MG/250 ML PREMIX IV PRN (01:35)
[2022-04-30] MEDS: HEPARIN 5,000 UNIT/1 ML VIAL SUBCUT SCH ×2 (02:42→12:49)
[2022-04-30 04:37] LABS: Basophils # 0.1 10*3/uL (0.0-0.2); Basophils % 0.2 % (0.0-0.8); Eosinophils # 0.1 10*3/uL (0.0-0.87); Eosinophils % 0.4 % (0.00-10.9); Hemoglobin 8.7 GM/DL (14.0-18.0); Immature Granulocytes % 3.8 %; Immature Granulocytes Absolute 1.06 #; Lymphocytes # 1.5 10*3/uL (1.4-4.0); Lymphocytes % 5.2 % (21.2-54.2); Mean Corpuscular HGB Conc 31.1 GM/DL (32-36); Mean Corpuscular Volume 102.9 FL (87-102); Mean Platelet Volume 10.7 FL (9.6-12.0); Monocytes % 10.8 % (1.7-12.7); Neutrophils % 79.6 % (38.7-73.9); Platelet Count 671 T/CUMM (130-400); Red Blood Count 2.72 MC/CUMM (3.8-5.5); Red Cell Distribution Width 14.1 % (9.3-17.3); White Blood Count 28.1 T/CUMM (4-12)
[2022-04-30 04:38] LABS: ABG Base Excess -4.1 MMOL/L (-2.5-2.5); ABG Oxygen Saturation 98.7 % (95-100); ABG PCO2 46.6 MM HG (35-48); ABG PH 7.295 (7.35-7.45)
[2022-04-30 04:54] LABS: Phosphorous 5.6 MG/DL (2.5-4.9)
[2022-04-30 04:56] LABS: Albumin 1.4 G/DL (3.4-5.0); Bilirubin,Total 0.9 MG/DL (0.20-1.00); Calcium 8.6 MG/DL (8.5-10.1); Lymphocytes 6 % (20-55); Osmolality,Calculated 310.7 MOS/KG (273-304); Platelet Estimate Increased; Potassium 4.9 MMOL/L (3.5-5.1); Total Cells Counted 100; Total Protein 5.7 G/DL (6.4-8.2)
[2022-04-30] MEDS: DILTIAZEM INJ 100 MG in SODIUM CHLORIDE 0.9% 100 ML IV SCH (08:16)
[2022-04-30] MEDS: MEROPENEM 500 MG in SODIUM CHLORIDE 0.9% 100 ML IV SCH (08:18)
[2022-04-30] MEDS: PANTOPRAZOLE 40 MG VIAL IV SCH ×2 (09:06→21:15)
[2022-04-30] MEDS: THIAMINE 200 MG/2 ML VIAL IV SCH (09:08)
[2022-04-30] MEDS: PHENYLEPHRINE INJ 160 MG in SODIUM CHLORIDE 0.9% 234 ML IV PRN ×2 (09:15→21:47)
[2022-04-30] MEDS ORDERED: ZINC OXIDE PASTE 113 GM TUBE TOP PRN (14:34)
[2022-04-30] MEDS: ACETAMINOPHEN 650 MG SUPP RECTAL PRN (16:11)
[2022-04-30] MEDS: MIDAZOLAM 100 MG in SODIUM CHLORIDE 0.9% 80 ML IV PRN (16:35)
[2022-04-30] MEDS: MULTIVITAMIN IV SCH (17:04)
[2022-04-30] MEDS: ELECTROLYTE IV SCH (17:04)
[2022-04-30] MEDS: [UNRECOGNIZED DRUG - OTHER] IV SCH (17:04)
[2022-04-30] MEDS: INSULIN REGULAR IV SCH (17:04)
[2022-05-01] MEDS: INSULIN LISPRO 100 UNIT/ML SUBCUT SCH ×6 (00:34→20:07)
[2022-05-01] MEDS: HEPARIN 5,000 UNIT/1 ML VIAL SUBCUT SCH ×3 (00:35→15:02)
[2022-05-01 04:09] LABS: ABG Base Excess -7.5 MMOL/L (-2.5-2.5); ABG HCO3 18.3 MMOL/L (20-26); ABG Oxygen Saturation 97.8 % (95-100); ABG PCO2 42.8 MM HG (35-48); ABG TCO2 17.9 MMOL/L (23-27)
[2022-05-01 04:15] LABS: Basophils # 0.1 10*3/uL (0.0-0.2); Basophils % 0.4 % (0.0-0.8); Eosinophils # 0.2 10*3/uL (0.0-0.87); Eosinophils % 0.5 % (0.00-10.9); Hematocrit 28.6 VOL% (42.0-52.0); Immature Granulocytes % 5.1 %; Immature Granulocytes Absolute 1.97 #; Lymphocytes # 2.3 10*3/uL (1.4-4.0); Mean Corpuscular HGB Conc 31.5 GM/DL (32-36); Mean Corpuscular Volume 102.9 FL (87-102); Mean Platelet Volume 10.8 FL (9.6-12.0); Monocytes # 4.4 10*3/uL (0.11-0.8); Monocytes % 11.2 % (1.7-12.7); Neutrophils % 76.8 % (38.7-73.9); Platelet Count 660 T/CUMM (130-400); Red Blood Count 2.78 MC/CUMM (3.8-5.5); Red Cell Distribution Width 14.6 % (9.3-17.3); White Blood Count 38.8 T/CUMM (4-12)
[2022-05-01 04:31] LABS: Albumin 1.2 G/DL (3.4-5.0); Calcium 8.8 MG/DL (8.5-10.1); Osmolality,Calculated 320.8 MOS/KG (273-304); Potassium 5.6 MMOL/L (3.5-5.1); Total Protein 5.7 G/DL (6.4-8.2)
[2022-05-01 05:02] LABS: Band Neutrophils 3 % (0-10); Lymphocytes 8 % (20-55); Total Cells Counted 100
[2022-05-01 05:03] LABS: Microcytosis Slight
[2022-05-01] MEDS: PANTOPRAZOLE 40 MG VIAL IV SCH ×2 (09:15→20:07)
[2022-05-01] MEDS: MEROPENEM 500 MG in SODIUM CHLORIDE 0.9% 100 ML IV SCH (09:15)
[2022-05-01] MEDS: THIAMINE 200 MG/2 ML VIAL IV SCH (09:15)
[2022-05-01] MEDS: OMEGA 3 ACID ETHYL ESTERS 1 GM CAPSULE PO SCH ×2 (10:35→21:33)
[2022-05-01] MEDS: METOPROLOL TARTRATE 25 MG TABLET PO SCH ×2 (10:35→21:33)
[2022-05-01] MEDS ORDERED: fentaNYL 100 MCG/2 ML VIAL ONE (10:56)
[2022-05-01] MEDS ORDERED: MIDAZOLAM 2 MG/2 ML VIAL ONE ×2 (10:56→12:48)
[2022-05-01] MEDS ORDERED: ROCURONIUM 50 MG/5 ML VIAL IV ONE ×2 (10:56→12:20)
[2022-05-01] MEDS ORDERED: HEPARIN/NACL 0.9% 2 UNITS/ML 1,000 UNIT/500 ML BAG IV ONE (11:07)
[2022-05-01] MEDS ORDERED: ALBUMIN 5% 25.0 GM/500 ML VIAL IV ONE (11:08)
[2022-05-01] MEDS ORDERED: ePHEDrine 50 MG/ML VIAL ONE (11:46)
[2022-05-01] MEDS ORDERED: SODIUM CHLORIDE 0.9% 1,000 ML IV ONE (12:17)
[2022-05-01] MEDS: PHENYLEPHRINE INJ 160 MG in SODIUM CHLORIDE 0.9% 234 ML IV PRN ×2 (14:30→22:38)
[2022-05-01 14:47] LABS: Basophils # 0.1 10*3/uL (0.0-0.2); Basophils % 0.4 % (0.0-0.8); Eosinophils # 0.2 10*3/uL (0.0-0.87); Eosinophils % 0.6 % (0.00-10.9); Immature Granulocytes % 8.7 %; Immature Granulocytes Absolute 2.57 #; Lymphocytes # 1.8 10*3/uL (1.4-4.0); Lymphocytes % 6.1 % (21.2-54.2); Mean Corpuscular HGB Conc 30.8 GM/DL (32-36); Mean Corpuscular Volume 105.7 FL (87-102); Mean Platelet Volume 10.6 FL (9.6-12.0); Monocytes % 3.4 % (1.7-12.7); NRBC # 0.02 10*3/uL; Neutrophils % 80.8 % (38.7-73.9); Platelet Count 567 T/CUMM (130-400); Red Blood Count 2.46 MC/CUMM (3.8-5.5); Red Cell Distribution Width 14.7 % (9.3-17.3); White Blood Count 29.7 T/CUMM (4-12)
[2022-05-01] MEDS: MIDAZOLAM 100 MG in SODIUM CHLORIDE 0.9% 80 ML IV PRN (14:50)
[2022-05-01 15:13] LABS: Band Neutrophils 7 % (0-10); Eosinophils 3 % (0-10); Lymphocytes 6 % (20-55); Total Cells Counted 100
[2022-05-01 15:21] LABS: Microcytosis Slight; Platelet Estimate Increased
[2022-05-01 15:22] LABS: Polychromasia Slight
[2022-05-01] MEDS: INSULIN REGULAR IV SCH (17:32)
[2022-05-01] MEDS: AMINO ACIDS IV SCH (17:32)
[2022-05-01] MEDS: MULTIVITAMIN IV SCH (17:32)
[2022-05-01] MEDS: [UNRECOGNIZED DRUG - OTHER] IV SCH (17:32)
[2022-05-01] MEDS: allopurinoL 100 MG TABLET PO SCH (17:33)
[2022-05-01] MEDS: HYDROmorphone 1 MG/1 ML SYRINGE IV PRN (22:27)
[2022-05-02] MEDS: INSULIN LISPRO 100 UNIT/ML SUBCUT SCH ×6 (00:03→23:09)
[2022-05-02] MEDS: HEPARIN 5,000 UNIT/1 ML VIAL SUBCUT SCH ×2 (00:20→14:30)
[2022-05-02] MEDS: HYDROmorphone 1 MG/1 ML SYRINGE IV PRN (04:05)
[2022-05-02 04:34] LABS: Basophils # 0.1 10*3/uL (0.0-0.2); Basophils % 0.1 % (0.0-0.8); Eosinophils # 0.4 10*3/uL (0.0-0.87); Eosinophils % 1.2 % (0.00-10.9); Hematocrit 23.9 VOL% (42.0-52.0); Hemoglobin 7.3 GM/DL (14.0-18.0); Immature Granulocytes % 5.2 %; Immature Granulocytes Absolute 1.75 #; Lymphocytes # 1.6 10*3/uL (1.4-4.0); Lymphocytes % 4.7 % (21.2-54.2); Mean Corpuscular HGB Conc 30.5 GM/DL (32-36); Mean Corpuscular Volume 105.8 FL (87-102); Mean Platelet Volume 10.5 FL (9.6-12.0); Monocytes # 3.8 10*3/uL (0.11-0.8); Monocytes % 11.3 % (1.7-12.7); NRBC # 0.02 10*3/uL; Neutrophils % 77.5 % (38.7-73.9); Platelet Count 526 T/CUMM (130-400); Red Blood Count 2.26 MC/CUMM (3.8-5.5); Red Cell Distribution Width 15.1 % (9.3-17.3); White Blood Count 33.6 T/CUMM (4-12)
[2022-05-02] MEDS: PHENYLEPHRINE INJ 160 MG in SODIUM CHLORIDE 0.9% 234 ML IV PRN ×5 (04:36→22:46)
[2022-05-02 04:38] LABS: ABG HCO3 18.7 MMOL/L (20-26); ABG Oxygen Saturation 98.6 % (95-100); ABG PCO2 53.1 MM HG (35-48); ABG PH 7.206 (7.35-7.45)
[2022-05-02 04:51] LABS: Albumin 1.3 G/DL (3.4-5.0); Bilirubin,Total 0.9 MG/DL (0.20-1.00); Calcium 8.7 MG/DL (8.5-10.1); Potassium 5.4 MMOL/L (3.5-5.1); Total Protein 5.2 G/DL (6.4-8.2)
[2022-05-02 05:23] LABS: Eosinophils 1 % (0-10); Lymphocytes 5 % (20-55); Platelet Estimate Adequate; Total Cells Counted 100
[2022-05-02 05:24] LABS: Hypochromia Slight; Microcytosis Slight
[2022-05-02] MEDS ORDERED: SODIUM CHLORIDE 0.9% 1,000 ML IV PRN (08:17)
[2022-05-02] MEDS: MEROPENEM 500 MG in SODIUM CHLORIDE 0.9% 100 ML IV SCH (08:34)
[2022-05-02] MEDS: OMEGA 3 ACID ETHYL ESTERS 1 GM CAPSULE PO SCH ×2 (08:35→23:09)
[2022-05-02] MEDS: METOPROLOL TARTRATE 25 MG TABLET PO SCH ×2 (08:35→23:09)
[2022-05-02] MEDS: PANTOPRAZOLE 40 MG VIAL IV SCH ×2 (08:36→20:01)
[2022-05-02] MEDS: THIAMINE 200 MG/2 ML VIAL IV SCH (08:36)
[2022-05-02] MEDS: FAT EMULSION 20% 250 ML IV SCH (15:09)
[2022-05-02] MEDS: NOREPINEPHRINE 16 MG in SODIUM CHLORIDE 0.9% 234 ML IV PRN (15:15)
[2022-05-02] MEDS: MIDAZOLAM 100 MG in SODIUM CHLORIDE 0.9% 80 ML IV PRN (15:30)
[2022-05-02] MEDS: INSULIN REGULAR IV SCH (19:01)
[2022-05-02] MEDS: DEXTROSE 70% IV SCH (19:01)
[2022-05-02] MEDS: AMINO ACIDS 10% IV SCH (19:01)
[2022-05-03] MEDS: INSULIN LISPRO 100 UNIT/ML SUBCUT SCH ×7 (00:56→23:54)
[2022-05-03] MEDS: HEPARIN 5,000 UNIT/1 ML VIAL SUBCUT SCH (01:00)
[2022-05-03] MEDS: PHENYLEPHRINE INJ 160 MG in SODIUM CHLORIDE 0.9% 234 ML IV PRN ×3 (02:32→11:51)
[2022-05-03 04:16] LABS: ABG Base Excess -6.6 MMOL/L (-2.5-2.5); ABG PCO2 42.7 MM HG (35-48); ABG PH 7.277 (7.35-7.45); ABG TCO2 18.5 MMOL/L (23-27)
[2022-05-03] MEDS: ACETAMINOPHEN 650 MG SUPP RECTAL PRN ×3 (04:38→23:12)
[2022-05-03 04:40] LABS: Albumin 1.2 G/DL (3.4-5.0); Bilirubin,Total 1.1 MG/DL (0.20-1.00); Calcium 8.1 MG/DL (8.5-10.1); Potassium 4.9 MMOL/L (3.5-5.1); Total Protein 4.6 G/DL (6.4-8.2)
[2022-05-03 04:44] LABS: Basophils # 0.1 10*3/uL (0.0-0.2); Basophils % 0.4 % (0.0-0.8); Eosinophils # 0.4 10*3/uL (0.0-0.87); Eosinophils % 1.2 % (0.00-10.9); Hematocrit 29.2 VOL% (42.0-52.0); Hemoglobin 9.1 GM/DL (14.0-18.0); Immature Granulocytes Absolute 1.82 #; Lymphocytes # 1.3 10*3/uL (1.4-4.0); Lymphocytes % 4.4 % (21.2-54.2); Mean Corpuscular HGB Conc 31.2 GM/DL (32-36); Mean Corpuscular Volume 102.1 FL (87-102); Mean Platelet Volume 10.6 FL (9.6-12.0); Monocytes # 2.5 10*3/uL (0.11-0.8); Monocytes % 8.3 % (1.7-12.7); NRBC # 0.05 10*3/uL; Neutrophils % 79.7 % (38.7-73.9); Platelet Count 357 T/CUMM (130-400); Red Blood Count 2.86 MC/CUMM (3.8-5.5); White Blood Count 30.2 T/CUMM (4-12)
[2022-05-03 05:39] LABS: Band Neutrophils 4 % (0-10); Eosinophils 1 % (0-10); Lymphocytes 4 % (20-55); Platelet Estimate Adequate; Total Cells Counted 100
[2022-05-03] MEDS: NOREPINEPHRINE 16 MG in SODIUM CHLORIDE 0.9% 234 ML IV PRN ×3 (07:10→22:13)
[2022-05-03] MEDS: SALIVA SUBSTITUTE SPRAY 60 ML CAN SWISH/SWAL PRN (08:05)
[2022-05-03] MEDS: MEROPENEM 500 MG in SODIUM CHLORIDE 0.9% 100 ML IV SCH (08:41)
[2022-05-03] MEDS: METOPROLOL TARTRATE 25 MG TABLET PO SCH ×2 (08:54→21:23)
[2022-05-03] MEDS: OMEGA 3 ACID ETHYL ESTERS 1 GM CAPSULE PO SCH ×2 (08:54→21:23)
[2022-05-03] MEDS: PANTOPRAZOLE 40 MG VIAL IV SCH ×2 (08:59→20:08)
[2022-05-03] MEDS: THIAMINE 200 MG/2 ML VIAL IV SCH (09:01)
[2022-05-03] MEDS ORDERED: ROCURONIUM 50 MG/5 ML VIAL IV ONE (09:21)
[2022-05-03] MEDS ORDERED: MIDAZOLAM 2 MG/2 ML VIAL ONE (09:21)
[2022-05-03] MEDS ORDERED: SEVOFLURANE 1 UNIT/15 MINUTE INH ONE (11:06)
[2022-05-03] MEDS: MIDAZOLAM 100 MG in SODIUM CHLORIDE 0.9% 80 ML IV PRN ×2 (11:44→11:50)
[2022-05-03] MEDS: AMINO ACIDS 10% IV SCH (18:30)
[2022-05-03] MEDS: INSULIN REGULAR IV SCH (18:30)
[2022-05-03] MEDS: DEXTROSE 70% IV SCH (18:30)
[2022-05-03] MEDS: HYDROmorphone 1 MG/1 ML SYRINGE IV PRN (21:13)
[2022-05-04] MEDS: NOREPINEPHRINE 16 MG in SODIUM CHLORIDE 0.9% 234 ML IV PRN ×6 (01:30→22:46)
[2022-05-04] MEDS: HYDROmorphone 1 MG/1 ML SYRINGE IV PRN ×2 (02:29→04:31)
[2022-05-04 03:33] LABS: Basophils # 0.2 10*3/uL (0.0-0.2); Basophils % 0.4 % (0.0-0.8); Eosinophils # 0.5 10*3/uL (0.0-0.87); Eosinophils % 1.6 % (0.00-10.9); Hematocrit 31.6 VOL% (42.0-52.0); Hemoglobin 9.8 GM/DL (14.0-18.0); Immature Granulocytes % 8.2 %; Lymphocytes # 1.2 10*3/uL (1.4-4.0); Lymphocytes % 3.4 % (21.2-54.2); Mean Platelet Volume 10.1 FL (9.6-12.0); Monocytes # 2.2 10*3/uL (0.11-0.8); Monocytes % 6.4 % (1.7-12.7); NRBC # 0.04 10*3/uL; Platelet Count 358 T/CUMM (130-400); Red Blood Count 3.13 MC/CUMM (3.8-5.5); Red Cell Distribution Width 17.2 % (9.3-17.3)
[2022-05-04 03:51] LABS: ABG Base Excess -10.1 MMOL/L (-2.5-2.5); ABG HCO3 16.4 MMOL/L (20-26); ABG Oxygen Saturation 98.8 % (95-100); ABG PCO2 43.6 MM HG (35-48); ABG PH 7.211 (7.35-7.45); ABG TCO2 16.3 MMOL/L (23-27)
[2022-05-04 04:00] LABS: Band Neutrophils 3 % (0-10); Eosinophils 2 % (0-10); Lymphocytes 2 % (20-55); Metamyelocytes 1 %; Microcytosis Slight; Total Cells Counted 100
[2022-05-04 04:01] LABS: Polychromasia Slight
[2022-05-04 04:07] LABS: Phosphorous 6.8 MG/DL (2.5-4.9)
[2022-05-04 04:13] LABS: Albumin 1.1 G/DL (3.4-5.0); Bilirubin,Total 1.1 MG/DL (0.20-1.00); Calcium 8.1 MG/DL (8.5-10.1); Osmolality,Calculated 309.1 MOS/KG (273-304); Potassium 5.3 MMOL/L (3.5-5.1); Total Protein 4.6 G/DL (6.4-8.2)
[2022-05-04] MEDS: ACETAMINOPHEN 650 MG SUPP RECTAL PRN ×2 (04:50→22:48)
[2022-05-04] MEDS: INSULIN LISPRO 100 UNIT/ML SUBCUT SCH ×5 (05:46→20:43)
[2022-05-04] MEDS: MEROPENEM 500 MG in SODIUM CHLORIDE 0.9% 100 ML IV SCH (08:52)
[2022-05-04] MEDS: METOPROLOL TARTRATE 25 MG TABLET PO SCH ×2 (08:53→22:44)
[2022-05-04] MEDS: THIAMINE 200 MG/2 ML VIAL IV SCH (08:54)
[2022-05-04] MEDS: OMEGA 3 ACID ETHYL ESTERS 1 GM CAPSULE PO SCH ×2 (08:54→22:44)
[2022-05-04] MEDS: PANTOPRAZOLE 40 MG VIAL IV SCH ×2 (08:54→20:50)
[2022-05-04] MEDS: SALIVA SUBSTITUTE SPRAY 60 ML CAN SWISH/SWAL PRN ×2 (08:55→16:10)
[2022-05-04] MEDS: FAT EMULSION 20% 250 ML IV SCH (09:50)
[2022-05-04] MEDS ORDERED: ROCURONIUM 50 MG/5 ML VIAL IV ONE (11:07)
[2022-05-04] MEDS ORDERED: fentaNYL 100 MCG/2 ML VIAL ONE (11:33)
[2022-05-04] MEDS ORDERED: ALBUMIN 5% 25 GM/500 ML VIAL IV ONE (13:39)
[2022-05-04] MEDS ORDERED: ALBUMIN 25% 25 GM/100 ML VIAL IV ONE (13:47)
[2022-05-04] MEDS: allopurinoL 100 MG TABLET PO SCH (16:00)
[2022-05-04] MEDS: MULTIVITAMIN IV SCH (17:07)
[2022-05-04] MEDS: INSULIN REGULAR IV SCH (17:07)
[2022-05-04] MEDS: [UNRECOGNIZED DRUG - OTHER] IV SCH (17:07)
[2022-05-04] MEDS: AMINO ACIDS IV SCH (17:07)
[2022-05-04] MEDS: MIDAZOLAM 100 MG in SODIUM CHLORIDE 0.9% 80 ML IV PRN (18:00)
[2022-05-05] MEDS: INSULIN LISPRO 100 UNIT/ML SUBCUT SCH ×6 (01:10→21:25)
[2022-05-05 02:31] LABS: Arterial Base Excess iSTAT -12 MMOL/L (-2.5-2.5); Arterial Bicarbonate iSTAT 16.4 MMOL/L (20-26); Arterial O2 Saturation iSTAT 94 % (95-100); Arterial PCO2 iSTAT 48 MM HG (35-48); Arterial PO2 iSTAT 92 MM HG (80-95); Arterial Total CO2 iSTAT 18 MMO/L (23-27); Arterial pH iSTAT 7.138 (7.35-7.45)
[2022-05-05] MEDS ORDERED: SODIUM BICARBONATE 50 MEQ/50 ML SYRINGE IV ONE ×2 (02:52→09:27)
[2022-05-05] MEDS: PHENYLEPHRINE DRIP 40 MG/250 ML PREMIX IV PRN (03:05)
[2022-05-05 06:06] LABS: Basophils # 0.3 10*3/uL (0.0-0.2); Basophils % 0.7 % (0.0-0.8); Eosinophils # 0.7 10*3/uL (0.0-0.87); Eosinophils % 1.7 % (0.00-10.9); Hematocrit 31.6 VOL% (42.0-52.0); Hemoglobin 9.7 GM/DL (14.0-18.0); Immature Granulocytes % 8.8 %; Immature Granulocytes Absolute 3.57 #; Lymphocytes # 1.5 10*3/uL (1.4-4.0); Lymphocytes % 3.8 % (21.2-54.2); Mean Corpuscular HGB Conc 30.7 GM/DL (32-36); Mean Corpuscular Volume 103.3 FL (87-102); Mean Platelet Volume 10.1 FL (9.6-12.0); Monocytes # 2.6 10*3/uL (0.11-0.8); Monocytes % 6.4 % (1.7-12.7); NRBC # 0.09 10*3/uL; Neutrophils % 78.6 % (38.7-73.9); Platelet Count 340 T/CUMM (130-400); Red Blood Count 3.06 MC/CUMM (3.8-5.5); Red Cell Distribution Width 17.6 % (9.3-17.3)
[2022-05-05 06:11] LABS: White Blood Count 40.5 T/CUMM (4-12)
[2022-05-05 06:19] LABS: Osmolality,Calculated 311.1 MOS/KG (273-304); Potassium 5.4 MMOL/L (3.5-5.1)
[2022-05-05 06:33] LABS: Band Neutrophils 1 % (0-10); Eosinophils 1 % (0-10); Hypochromia Slight; Lymphocytes 3 % (20-55); Total Cells Counted 100
[2022-05-05 06:34] LABS: Microcytosis Slight; Polychromasia Slight
[2022-05-05] MEDS: SALIVA SUBSTITUTE SPRAY 60 ML CAN SWISH/SWAL PRN (07:44)
[2022-05-05 08:24] LABS: Arterial Base Excess iSTAT -12 MMOL/L (-2.5-2.5); Arterial Bicarbonate iSTAT 16.4 MMOL/L (20-26); Arterial O2 Saturation iSTAT 94 % (95-100); Arterial PCO2 iSTAT 48 MM HG (35-48); Arterial PO2 iSTAT 91 MM HG (80-95); Arterial Total CO2 iSTAT 18 MMO/L (23-27); Arterial pH iSTAT 7.139 (7.35-7.45)
[2022-05-05] MEDS: PANTOPRAZOLE 40 MG VIAL IV SCH ×2 (08:45→21:26)
[2022-05-05] MEDS: THIAMINE 200 MG/2 ML VIAL IV SCH (08:46)
[2022-05-05] MEDS: MEROPENEM 500 MG in SODIUM CHLORIDE 0.9% 100 ML IV SCH (09:17)
[2022-05-05] MEDS: OMEGA 3 ACID ETHYL ESTERS 1 GM CAPSULE PO SCH ×2 (09:17→21:26)
[2022-05-05] MEDS: METOPROLOL TARTRATE 25 MG TABLET PO SCH ×2 (09:17→21:26)
[2022-05-05] MEDS: NOREPINEPHRINE 16 MG in SODIUM CHLORIDE 0.9% 234 ML IV PRN ×6 (09:24→23:47)
[2022-05-05] MEDS ORDERED: SODIUM BICARBONATE 50 MEQ/50 ML VIAL IV ONE (09:25)
[2022-05-05] MEDS ORDERED: ALBUMIN 25% 25 GM/100 ML VIAL IV ONE (14:11)
[2022-05-05] MEDS: AMINO ACIDS 10% IV SCH (16:26)
[2022-05-05] MEDS: INSULIN REGULAR IV SCH (16:26)
[2022-05-05] MEDS: DEXTROSE 70% IV SCH (16:26)
[2022-05-05] MEDS: SODIUM BICARB INJ 150 MEQ in DEXTROSE 5% 1,000 ML IV SCH (19:21)
[2022-05-06] MEDS: INSULIN LISPRO 100 UNIT/ML SUBCUT SCH ×6 (00:26→20:52)
[2022-05-06] MEDS: NOREPINEPHRINE 16 MG in SODIUM CHLORIDE 0.9% 234 ML IV PRN ×6 (03:08→19:40)
[2022-05-06 04:48] LABS: ABG HCO3 17.9 MMOL/L (20-26); ABG Oxygen Saturation 98.5 % (95-100); ABG TCO2 18.4 MMOL/L (23-27)
[2022-05-06 04:50] LABS: Basophils # 0.1 10*3/uL (0.0-0.2); Basophils % 0.4 % (0.0-0.8); Eosinophils # 0.6 10*3/uL (0.0-0.87); Eosinophils % 2.1 % (0.00-10.9); Hematocrit 25.6 VOL% (42.0-52.0); Hemoglobin 7.9 GM/DL (14.0-18.0); Immature Granulocytes % 5.8 %; Immature Granulocytes Absolute 1.66 #; Lymphocytes # 1.4 10*3/uL (1.4-4.0); Mean Corpuscular HGB Conc 30.9 GM/DL (32-36); Mean Platelet Volume 10.2 FL (9.6-12.0); Monocytes # 1.3 10*3/uL (0.11-0.8); Monocytes % 4.5 % (1.7-12.7); NRBC # 0.05 10*3/uL; Neutrophils % 82.2 % (38.7-73.9); Platelet Count 205 T/CUMM (130-400); Red Blood Count 2.51 MC/CUMM (3.8-5.5); Red Cell Distribution Width 17.5 % (9.3-17.3); White Blood Count 28.5 T/CUMM (4-12)
[2022-05-06 05:09] LABS: Albumin 1.2 G/DL (3.4-5.0); Bilirubin,Total 0.9 MG/DL (0.20-1.00); Calcium 7.9 MG/DL (8.5-10.1); Potassium 4.5 MMOL/L (3.5-5.1); Total Protein 4.9 G/DL (6.4-8.2)
[2022-05-06 05:12] LABS: Band Neutrophils 7 % (0-10); Lymphocytes 4 % (20-55); Nucleated Red Blood Cells 1 /100 WBC (0-5); Polychromasia Slight; Total Cells Counted 100
[2022-05-06 05:13] LABS: Anisocytosis 1+; Microcytosis 1+; Platelet Estimate Normal
[2022-05-06] MEDS: MEROPENEM 500 MG in SODIUM CHLORIDE 0.9% 100 ML IV SCH (07:35)
[2022-05-06] MEDS: FAT EMULSION 20% 250 ML IV SCH (08:15)
[2022-05-06] MEDS: OMEGA 3 ACID ETHYL ESTERS 1 GM CAPSULE PO SCH ×2 (08:15→20:52)
[2022-05-06] MEDS: PANTOPRAZOLE 40 MG VIAL IV SCH ×2 (09:01→20:50)
[2022-05-06] MEDS: THIAMINE 200 MG/2 ML VIAL IV SCH (09:01)
[2022-05-06] MEDS: SODIUM BICARB INJ 150 MEQ in DEXTROSE 5% 1,000 ML IV SCH ×2 (09:02→23:20)
[2022-05-06] MEDS: MIDAZOLAM 100 MG in SODIUM CHLORIDE 0.9% 80 ML IV PRN (14:05)
[2022-05-06] MEDS: INSULIN REGULAR IV SCH (18:18)
[2022-05-06] MEDS: AMINO ACIDS IV SCH (18:18)
[2022-05-06] MEDS: MULTIVITAMIN IV SCH (18:18)
[2022-05-06] MEDS: [UNRECOGNIZED DRUG - OTHER] IV SCH (18:18)
[2022-05-06] MEDS: allopurinoL 100 MG TABLET PO SCH (18:19)
[2022-05-06] MEDS: MENTHOL/ZINC OXIDE OINT 71 GM JAR TOP SCH (20:52)
[2022-05-06] MEDS: PHENYLEPHRINE INJ 160 MG in SODIUM CHLORIDE 0.9% 234 ML IV PRN (21:47)
[2022-05-07] MEDS: INSULIN LISPRO 100 UNIT/ML SUBCUT SCH ×6 (00:01→19:52)
[2022-05-07] MEDS: NOREPINEPHRINE 16 MG in SODIUM CHLORIDE 0.9% 234 ML IV PRN ×7 (00:12→19:50)
[2022-05-07 04:51] LABS: ABG HCO3 21.1 MMOL/L (20-26); ABG Oxygen Saturation 98.1 % (95-100); ABG PCO2 55.3 MM HG (35-48); ABG TCO2 22.5 MMOL/L (23-27)
[2022-05-07 04:57] LABS: Basophils # 0.1 10*3/uL (0.0-0.2); Basophils % 0.3 % (0.0-0.8); Eosinophils # 0.8 10*3/uL (0.0-0.87); Eosinophils % 2.6 % (0.00-10.9); Hematocrit 25.5 VOL% (42.0-52.0); Immature Granulocytes % 6.1 %; Immature Granulocytes Absolute 1.87 #; Lymphocytes # 1.9 10*3/uL (1.4-4.0); Lymphocytes % 6.1 % (21.2-54.2); Mean Corpuscular HGB Conc 31.4 GM/DL (32-36); Mean Corpuscular Volume 100.8 FL (87-102); Mean Platelet Volume 10.6 FL (9.6-12.0); Monocytes # 1.6 10*3/uL (0.11-0.8); Monocytes % 5.2 % (1.7-12.7); NRBC # 0.07 10*3/uL; Neutrophils % 79.7 % (38.7-73.9); Platelet Count 174 T/CUMM (130-400); Red Blood Count 2.53 MC/CUMM (3.8-5.5); Red Cell Distribution Width 17.5 % (9.3-17.3); White Blood Count 30.9 T/CUMM (4-12)
[2022-05-07 05:11] LABS: Bilirubin,Total 0.6 MG/DL (0.20-1.00); Calcium 7.6 MG/DL (8.5-10.1); Osmolality,Calculated 299.1 MOS/KG (273-304); Potassium 4.1 MMOL/L (3.5-5.1); Total Protein 4.8 G/DL (6.4-8.2)
[2022-05-07 05:14] LABS: Phosphorous 4.7 MG/DL (2.5-4.9)
[2022-05-07 05:16] LABS: Band Neutrophils 1 % (0-10); Eosinophils 2 % (0-10); Lymphocytes 2 % (20-55); Platelet Estimate Adequate; Total Cells Counted 100
[2022-05-07] MEDS: MEROPENEM 500 MG in SODIUM CHLORIDE 0.9% 100 ML IV SCH (08:47)
[2022-05-07] MEDS: PANTOPRAZOLE 40 MG VIAL IV SCH ×2 (08:48→22:03)
[2022-05-07] MEDS: THIAMINE 200 MG/2 ML VIAL IV SCH (08:48)
[2022-05-07] MEDS: OMEGA 3 ACID ETHYL ESTERS 1 GM CAPSULE PO SCH ×2 (08:49→22:02)
[2022-05-07] MEDS: MENTHOL/ZINC OXIDE OINT 71 GM JAR TOP SCH ×3 (08:51→22:02)
[2022-05-07] MEDS ORDERED: EPINEPHrine 1 MG/10 ML SYRINGE ONE (11:50)
[2022-05-07] MEDS ORDERED: ATROPINE 1 MG/10 ML SYRINGE ONE (11:50)
[2022-05-07] MEDS ORDERED: EPINEPHrine 1 MG/ML VIAL ONE (11:53)
[2022-05-07 11:55] LABS: Arterial Bicarbonate iSTAT 20.3 MMOL/L (20-26); Arterial pH iSTAT 7.181 (7.35-7.45)
[2022-05-07] MEDS ORDERED: EPINEPHrine 1 MG/10 ML SYRINGE IV ONE (12:01)
[2022-05-07] MEDS: SODIUM BICARB INJ 150 MEQ in DEXTROSE 5% 1,000 ML IV SCH (13:40)
[2022-05-07] MEDS: PHENYLEPHRINE INJ 160 MG in SODIUM CHLORIDE 0.9% 234 ML IV PRN (13:45)
[2022-05-07] MEDS: AMINO ACIDS 10% IV SCH (17:30)
[2022-05-07] MEDS: INSULIN REGULAR IV SCH (17:30)
[2022-05-07] MEDS: DEXTROSE 70% IV SCH (17:30)
[2022-05-07 18:12] LABS: ABG Base Excess -5.6 MMOL/L (-2.5-2.5); ABG HCO3 19.8 MMOL/L (20-26); ABG Oxygen Saturation 97.5 % (95-100); ABG PCO2 56.9 MM HG (35-48); ABG PH 7.206 (7.35-7.45); ABG TCO2 21.6 MMOL/L (23-27)
[2022-05-08] MEDS: INSULIN LISPRO 100 UNIT/ML SUBCUT SCH ×7 (00:01→23:44)
[2022-05-08] MEDS: NOREPINEPHRINE 16 MG in SODIUM CHLORIDE 0.9% 234 ML IV PRN ×9 (00:55→21:54)
[2022-05-08] MEDS: PHENYLEPHRINE INJ 160 MG in SODIUM CHLORIDE 0.9% 234 ML IV PRN ×2 (03:37→17:03)
[2022-05-08 04:16] LABS: ABG Base Excess -5.1 MMOL/L (-2.5-2.5); ABG HCO3 20.2 MMOL/L (20-26); ABG Oxygen Saturation 98.7 % (95-100); ABG TCO2 21.3 MMOL/L (23-27)
[2022-05-08 04:27] LABS: Basophils # 0.1 10*3/uL (0.0-0.2); Basophils % 0.4 % (0.0-0.8); Eosinophils # 0.6 10*3/uL (0.0-0.87); Eosinophils % 2.4 % (0.00-10.9); Hematocrit 24.3 VOL% (42.0-52.0); Hemoglobin 7.5 GM/DL (14.0-18.0); Immature Granulocytes % 5.1 %; Immature Granulocytes Absolute 1.35 #; Lymphocytes # 2.8 10*3/uL (1.4-4.0); Lymphocytes % 10.5 % (21.2-54.2); Mean Corpuscular HGB Conc 30.9 GM/DL (32-36); Mean Corpuscular Volume 100.4 FL (87-102); Mean Platelet Volume 11.3 FL (9.6-12.0); Monocytes # 1.7 10*3/uL (0.11-0.8); Monocytes % 6.3 % (1.7-12.7); NRBC # 0.12 10*3/uL; Neutrophils % 75.3 % (38.7-73.9); Platelet Count 215 T/CUMM (130-400); Red Blood Count 2.42 MC/CUMM (3.8-5.5); Red Cell Distribution Width 17.4 % (9.3-17.3); White Blood Count 26.4 T/CUMM (4-12)
[2022-05-08 04:39] LABS: Albumin 0.9 G/DL (3.4-5.0); Bilirubin,Total 0.6 MG/DL (0.20-1.00); Calcium 7.3 MG/DL (8.5-10.1); Potassium 4.3 MMOL/L (3.5-5.1); Total Protein 4.6 G/DL (6.4-8.2)
[2022-05-08 04:56] LABS: Eosinophils 2 % (0-10); Lymphocytes 15 % (20-55); Platelet Estimate Normal; Total Cells Counted 100
[2022-05-08] MEDS: SODIUM BICARB INJ 150 MEQ in DEXTROSE 5% 1,000 ML IV SCH (05:07)
[2022-05-08] MEDS: MEROPENEM 500 MG in SODIUM CHLORIDE 0.9% 100 ML IV SCH (08:37)
[2022-05-08] MEDS: MENTHOL/ZINC OXIDE OINT 71 GM JAR TOP SCH ×2 (08:38→20:37)
[2022-05-08] MEDS: OMEGA 3 ACID ETHYL ESTERS 1 GM CAPSULE PO SCH ×2 (08:39→20:37)
[2022-05-08] MEDS: PANTOPRAZOLE 40 MG VIAL IV SCH ×2 (08:39→20:37)
[2022-05-08] MEDS: FAT EMULSION 20% 250 ML IV SCH (08:39)
[2022-05-08] MEDS: THIAMINE 200 MG/2 ML VIAL IV SCH (08:40)
[2022-05-08] MEDS: ACETAMINOPHEN 650 MG SUPP RECTAL PRN (12:19)
[2022-05-08] MEDS ORDERED: ALTEPLASE 2 MG VIAL IV ONE (15:40)
[2022-05-08] MEDS: MULTIVITAMIN IV SCH (16:56)
[2022-05-08] MEDS: INSULIN REGULAR IV SCH (16:56)
[2022-05-08] MEDS: [UNRECOGNIZED DRUG - OTHER] IV SCH (16:56)
[2022-05-08] MEDS: AMINO ACIDS IV SCH (16:56)
[2022-05-08] MEDS: allopurinoL 100 MG TABLET PO SCH (16:56)
[2022-05-09] MEDS: NOREPINEPHRINE 16 MG in SODIUM CHLORIDE 0.9% 234 ML IV PRN ×5 (00:42→12:22)
[2022-05-09] MEDS: INSULIN LISPRO 100 UNIT/ML SUBCUT SCH ×4 (03:55→16:10)
[2022-05-09 04:09] LABS: ABG Base Excess -4.3 MMOL/L (-2.5-2.5); ABG HCO3 20.8 MMOL/L (20-26); ABG Oxygen Saturation 98.2 % (95-100); ABG PCO2 50.9 MM HG (35-48); ABG PH 7.259 (7.35-7.45); ABG TCO2 21.7 MMOL/L (23-27)
[2022-05-09 04:20] LABS: Basophils # 0.1 10*3/uL (0.0-0.2); Basophils % 0.3 % (0.0-0.8); Eosinophils # 1.1 10*3/uL (0.0-0.87); Eosinophils % 4.1 % (0.00-10.9); Hemoglobin 7.3 GM/DL (14.0-18.0); Immature Granulocytes % 4.4 %; Lymphocytes % 7.2 % (21.2-54.2); Mean Corpuscular HGB Conc 30.4 GM/DL (32-36); Mean Corpuscular Volume 100.4 FL (87-102); Mean Platelet Volume 11.3 FL (9.6-12.0); Monocytes # 1.5 10*3/uL (0.11-0.8); Monocytes % 5.6 % (1.7-12.7); NRBC # 0.05 10*3/uL; Neutrophils % 78.4 % (38.7-73.9); Platelet Count 182 T/CUMM (130-400); Red Blood Count 2.39 MC/CUMM (3.8-5.5); Red Cell Distribution Width 17.3 % (9.3-17.3); White Blood Count 27.3 T/CUMM (4-12)
[2022-05-09 04:25] LABS: Calcium 7.1 MG/DL (8.5-10.1); Osmolality,Calculated 303.1 MOS/KG (273-304); Potassium 3.8 MMOL/L (3.5-5.1)
[2022-05-09 04:45] LABS: Band Neutrophils 3 % (0-10); Eosinophils 4 % (0-10); Lymphocytes 4 % (20-55); Platelet Estimate Adequate; Total Cells Counted 100
[2022-05-09] MEDS: MIDAZOLAM 100 MG in SODIUM CHLORIDE 0.9% 80 ML IV PRN (06:40)
[2022-05-09] MEDS ORDERED: SODIUM CHLORIDE 0.9% 1,000 ML IV PRN (07:11)
[2022-05-09] MEDS: PHENYLEPHRINE INJ 160 MG in SODIUM CHLORIDE 0.9% 234 ML IV PRN (07:46)
[2022-05-09] MEDS: OMEGA 3 ACID ETHYL ESTERS 1 GM CAPSULE PO SCH (08:30)
[2022-05-09] MEDS: MENTHOL/ZINC OXIDE OINT 71 GM JAR TOP SCH (08:30)
[2022-05-09] MEDS: SALIVA SUBSTITUTE SPRAY 60 ML CAN SWISH/SWAL PRN ×2 (08:32→16:11)
[2022-05-09] MEDS: MEROPENEM 500 MG in SODIUM CHLORIDE 0.9% 100 ML IV SCH (09:18)
[2022-05-09] MEDS: THIAMINE 200 MG/2 ML VIAL IV SCH (09:19)
[2022-05-09] MEDS: PANTOPRAZOLE 40 MG VIAL IV SCH (09:19)
[2022-05-09] MEDS: SODIUM BICARB INJ 150 MEQ in DEXTROSE 5% 1,000 ML IV SCH (12:18)
[2022-05-09] MEDS: NOREPINEPHRINE 32 MG in SODIUM CHLORIDE 0.9% 468 ML IV PRN ×2 (15:09→20:31)
[2022-05-09] MEDS: INSULIN REGULAR IV SCH (16:10)
[2022-05-09] MEDS: AMINO ACIDS 10% IV SCH (16:10)
[2022-05-09] MEDS: DEXTROSE 70% IV SCH (16:10)
[2022-05-09 17:23] VITALS: BP 105/41
[2022-05-10] MEDS: PANTOPRAZOLE 40 MG VIAL IV SCH ×3 (01:40→20:25)
[2022-05-10] MEDS: OMEGA 3 ACID ETHYL ESTERS 1 GM CAPSULE PO SCH ×3 (01:40→20:25)
[2022-05-10] MEDS: MENTHOL/ZINC OXIDE OINT 71 GM JAR TOP SCH ×3 (01:45→20:25)
[2022-05-10] MEDS: INSULIN LISPRO 100 UNIT/ML SUBCUT SCH ×7 (01:45→19:57)
[2022-05-10] MEDS: PHENYLEPHRINE INJ 160 MG in SODIUM CHLORIDE 0.9% 234 ML IV PRN (07:10)
[2022-05-10 08:25] LABS: Basophils # 0.1 10*3/uL (0.0-0.2); Basophils % 0.3 % (0.0-0.8); Eosinophils # 1.1 10*3/uL (0.0-0.87); Eosinophils % 3.7 % (0.00-10.9); Hematocrit 26.9 VOL% (42.0-52.0); Hemoglobin 8.3 GM/DL (14.0-18.0); Immature Granulocytes Absolute 1.15 #; Lymphocytes # 2.4 10*3/uL (1.4-4.0); Lymphocytes % 8.3 % (21.2-54.2); Mean Corpuscular HGB Conc 30.9 GM/DL (32-36); Mean Corpuscular Volume 99.6 FL (87-102); Mean Platelet Volume 11.4 FL (9.6-12.0); Monocytes # 1.9 10*3/uL (0.11-0.8); Monocytes % 6.6 % (1.7-12.7); NRBC # 0.13 10*3/uL; Neutrophils % 77.1 % (38.7-73.9); Platelet Count 227 T/CUMM (130-400); Red Cell Distribution Width 17.4 % (9.3-17.3)
[2022-05-10 08:41] LABS: Albumin 0.8 G/DL (3.4-5.0); Bilirubin,Total 0.8 MG/DL (0.20-1.00); Calcium 7.7 MG/DL (8.5-10.1); Osmolality,Calculated 304.2 MOS/KG (273-304); Potassium 4.2 MMOL/L (3.5-5.1); Total Protein 4.9 G/DL (6.4-8.2)
[2022-05-10 08:47] LABS: Band Neutrophils 19 % (0-10); Eosinophils 8 % (0-10); Lymphocytes 8 % (20-55); Nucleated Red Blood Cells 1 /100 WBC (0-5); Platelet Estimate Normal; Total Cells Counted 100
[2022-05-10 08:51] LABS: Anisocytosis 1+; Burr Cells Few; Macrocytosis Slight
[2022-05-10] MEDS: NOREPINEPHRINE 32 MG in SODIUM CHLORIDE 0.9% 468 ML IV PRN ×3 (10:10→20:35)
[2022-05-10] MEDS ORDERED: MICAFUNGIN 150 MG in SODIUM CHLORIDE 0.9% 100 ML IV SCH (11:00)
[2022-05-10] MEDS: MEROPENEM 500 MG in SODIUM CHLORIDE 0.9% 100 ML IV SCH (11:40)
[2022-05-10] MEDS: FAT EMULSION 20% 250 ML IV SCH (11:45)
[2022-05-10] MEDS: THIAMINE 200 MG/2 ML VIAL IV SCH (11:46)
[2022-05-10] MEDS: OCTREOTIDE 100 MCG/ML SYRINGE SUBCUT SCH ×3 (11:53→20:25)
[2022-05-10] MEDS ORDERED: VANCOMYCIN INJ 2,500 MG in SODIUM CHLORIDE 0.9% 500 ML IV ONE (12:00)
[2022-05-10] MEDS: DEXTROSE 10% 250 ML BAG IV PRN (15:36)
[2022-05-10] MEDS: SALIVA SUBSTITUTE SPRAY 60 ML CAN SWISH/SWAL PRN (16:19)
[2022-05-10] MEDS: INSULIN REGULAR IV SCH (17:35)
[2022-05-10] MEDS: AMINO ACIDS 10% IV SCH (17:35)
[2022-05-10] MEDS: DEXTROSE 70% IV SCH (17:35)
[2022-05-11] MEDS: NOREPINEPHRINE 32 MG in SODIUM CHLORIDE 0.9% 468 ML IV PRN ×3 (00:52→08:49)
[2022-05-11 04:43] LABS: ABG Base Excess -14.9 MMOL/L (-2.5-2.5); ABG HCO3 12.8 MMOL/L (20-26); ABG Oxygen Saturation 91.2 % (95-100); ABG PCO2 54.1 MM HG (35-48)
[2022-05-11 04:46] LABS: Basophils # 0.1 10*3/uL (0.0-0.2); Basophils % 0.4 % (0.0-0.8); Hematocrit 26.5 VOL% (42.0-52.0); Immature Granulocytes % 6.3 %; Immature Granulocytes Absolute 2.03 #; Lymphocytes # 3.4 10*3/uL (1.4-4.0); Lymphocytes % 10.4 % (21.2-54.2); Mean Corpuscular HGB Conc 30.2 GM/DL (32-36); Mean Corpuscular Volume 103.1 FL (87-102); Mean Platelet Volume 11.6 FL (9.6-12.0); Monocytes # 2.3 10*3/uL (0.11-0.8); NRBC # 0.73 10*3/uL; Neutrophils % 72.9 % (38.7-73.9); Platelet Count 213 T/CUMM (130-400); Red Blood Count 2.57 MC/CUMM (3.8-5.5); Red Cell Distribution Width 18.1 % (9.3-17.3); White Blood Count 32.4 T/CUMM (4-12)
[2022-05-11 04:54] LABS: ABG PH 7.055 (7.35-7.45)
[2022-05-11 04:59] LABS: Calcium 7.2 MG/DL (8.5-10.1); Osmolality,Calculated 301.4 MOS/KG (273-304)
[2022-05-11 05:08] LABS: Band Neutrophils 5 % (0-10); Eosinophils 3 % (0-10); Lymphocytes 10 % (20-55); Nucleated Red Blood Cells 3 /100 WBC (0-5); Total Cells Counted 100
[2022-05-11 05:09] LABS: Polychromasia Slight
[2022-05-11 05:10] LABS: Macrocytosis Slight; Target Cells Slight
[2022-05-11] MEDS: DEXTROSE 10% 250 ML BAG IV PRN (05:47)
[2022-05-11] MEDS: INSULIN LISPRO 100 UNIT/ML SUBCUT SCH ×2 (05:48→11:10)
[2022-05-11] MEDS: PHENYLEPHRINE INJ 160 MG in SODIUM CHLORIDE 0.9% 234 ML IV PRN (07:56)
[2022-05-11] MEDS ORDERED: MORPHINE 2 MG/1 ML SYRINGE IV PRN (09:47)
[2022-05-11] MEDS ORDERED: LORazepam 2 MG/1 ML VIAL IV PRN (09:47)
[2022-05-11] MEDS: HYDROmorphone 1 MG/1 ML SYRINGE IV PRN (10:53)
[2022-05-11] MEDS: MEROPENEM 500 MG in SODIUM CHLORIDE 0.9% 100 ML IV SCH (11:10)
[2022-05-11 13:58] LABS: HIV Antigen/Antibody Result Nonreactive (Nonreactive); Hepatitis B Surface Ag Quant < 0.10 Index; Hepatitis B Surface Ag Result Non-Reactive (NonReactive); Hepatitis C Virus Ab Quant 0.29 Index; Hepatitis C Virus Ab Result Non-Reactive (NonReactive)
[2022-05-11] MEDS ORDERED: VANCOMYCIN INJ 1,000 MG in SODIUM CHLORIDE 0.9% 250 ML IV PRN (17:00)
== END 2022-05-11 10:56 | disposition expired | DRG 405 ==
LOC: N.ICU 17:51
PROVIDERS: ADMIT Student in an Organized Health Care Education/Training Program; ATTEND Surgery